=== PATIENT | female | born 2000 | race Caucasian/White ===

== ENCOUNTER 2021-05-22 10:08 | Emergency (ER) | payer BC, SELFPAY ==
[2021-05-22 11:05] VITALS: BP 127/77; PULSE 83; RESP 18; TEMP 36.7; O2SAT 100; BMI 23.1
--- NOTE | 2021-05-22 11:25 | HMH.EDUTC ---
[facility] [place] Clinical Impression: Exposure to COVID-19 virus Disposition: Home, Self-Care Condition on Discharge: Good Instructions: DI for COVID-19 (Suspected or Confirmed ), Preventing the Spread of Coronavirus Discharge Instructions Additional Instructions: Drink plenty of fluids. Take tylenol for pain or fever. Return if you begin to have difficulty breathing. Follow up with your regular doctor. GO TO THE ER FOR ANY WORSENING SYMPTOMS Quarantine until you know the results of your covid-19 test. If it is positive, the health department should call you and give you further instructions about your length of Quarantine and other things. Notify your school or workplace of your results and follow their instructions regarding return to work/school. Referrals: Provider,Referral, [Primary Care Provider] - Time of Disposition: 11:26 Medical Decision Making - Medical Records Medical records reviewed: No: I reviewed the patient's medical records. - Michael Inquiry Pt receiving controlled substance: No Vital Signs: 05/22/21 11:05 05/22/21 11:37 Temperature 98.0 F 98.0 F Temperature Source Oral Pulse Rate 83 Pulse Rate [Right Brachial] 83 Respiratory Rate 18 18 Blood Pressure 127/77 Blood Pressure [Right Arm] 127/77 Blood Pressure Mean [Right Arm] 93 Blood Pressure Source [Right Arm] Automatic Cuff Blood Pressure Position [Right Arm] Sitting 02 Sat by Pulse Oximetry 100 Oxygen Delivery Method Room Air Orders (Tests/Meds): ORDERS Category Date Time Status Covid-19 Nasal PCR ([facility]) Routine Lab 05/22/21 11:15 Received Covid-19 Nasal PCR ([facility]) Routine Lab 05/22/21 11:30 Ordered [facility] [place] - General Stated complaint: exposure Time Seen by Provider: 05/22/21 11:15 - History of Present Illness Provider Complaint: She has been exposed to covid-19 around 5 days ago. She denies any symptoms so far. She did have covid-19 back in last July. She has not been vaccinated. - Related Data Allergies Allergy/AdvReac Type Severity Reaction Status Date / Time No Known Allergies Allergy Verified 05/22/21 11:30 [facility] History - Hepatitis A Screen Attestation statement:: This patient has been screened for Hepatitis A risk factors. I have reviewed the patient's past medical history: Yes ROS Obtained: Yes All systems reviewed & no additional complaints - Constitutional Constitutional: Reports system reviewed and no additional complaints, except as docu - Eyes Eyes: Reports system reviewed and no additional complaints, except as docu - ENT Ears, Nose, Mouth, and Throat: Reports system reviewed and no additional complaints, except as docu - Cardiovascular Cardiovascular: Reports system reviewed and no additional complaints, except as docu - Respiratory Respiratory: Reports system reviewed and no additional complaints, except as docu - Gastrointestinal Gastrointestingal: Reports: system reviewed and no additional complaints, except as docu Physical Exam - General General appearance: alert, in no apparent distress - Head Head exam: atraumatic, normocephalic, normal inspection - Eye Eye exam: Present: normal appearance, PERRL, EOMI - ENT ENT exam: Present: normal exam, normal oropharynx, mucous membranes moist, TM's normal bilaterally, normal external ear exam - Neck Neck exam: Present: normal inspection, full ROM, trachea midline. Absent: meningismus, lymphadenopathy - Chest Chest inspection: Present: normal inspection, symmetric chest wall rise. Absent: tenderness - Respiratory Respiratory exam: Present: normal lung sounds bilaterally. Absent: respiratory distress - Cardiovascular Cardiovascular exam: Present: regular rate, normal rhythm. Absent: JVD - Abdominal Exam Abdominal exam: Present: soft, normal bowel sounds. Absent: distention, tenderness, guarding - Extremities Exam Extremities exam: Present: normal inspection, full R
[2021-05-22 11:37] VITALS: BP 127/77; PULSE 83; RESP 18; TEMP 36.7; O2SAT 100
== END 2021-05-22 11:40 | disposition home or self-care (01) ==
PROVIDERS: Emergency Provider Nurse Practitioner Family
DX: Z20.822 Contact with and (suspected) exposure to COVID-19 (principal)
CPT/HCPCS: 99202; C9803; G0463; U0003; U0005

== ENCOUNTER 2021-06-29 01:48 | Outpatient (CLI) | payer BC, SELFPAY ==
[2021-06-29 01:59] VITALS: BMI 24.0
[2021-06-29 02:40] LABS: Microscopic, Urine URINE MICROSCOPIC (MICROSCOPIC)
[2021-06-29 02:43] LABS: Appearance,Urine CLEAR (Clear); Bilirubin,Urine Negative (Negative); Blood, Urine Negative (Negative); Color,Urine YELLOW (Yellow); Glucose,Urine (UA) Negative (Negative); Ketones,Urine Negative (Negative); Leukocyte Esterase,Urine TRACE (Negative); Nitrate,Urine Negative (Negative); Protein,Urine Negative (Negative); Urobilinogen,Urine 0.2 EU/dl (0.2)
[2021-06-29 02:54] LABS: Amphetamine/Metha Screen,Urine Negative ng/ml (<1000)
[2021-06-29 02:55] LABS: Barbiturates Screen,Urine Negative ng/ml (<200)
[2021-06-29 02:56] LABS: Benzodiazepines Screen,Urine Negative ng/ml (<200); Cannabinoid Screen,Urine Negative ng/ml (<50)
[2021-06-29 02:57] LABS: Cocaine Screen,Urine Negative ng/ml (<300)
[2021-06-29 02:58] LABS: Fetal Fibronectin (Rapid) Negative (Negative); Fetal Membrane Rupture (Rapid) Negative (Negative)
[2021-06-29 02:58] LABS: Methadone Screen,Urine Negative ng/ml (<300); Opiate Screen,Urine Negative ng/ml (<300)
[2021-06-29 02:59] LABS: Phencyclidine Screen,Urine Negative ng/ml (<25)
[2021-06-29 03:15] LABS: Bacteria,Urine 1+ /lpf
[2021-06-29 03:16] VITALS: BP 126/80; PULSE 78; RESP 18; TEMP 37; O2SAT 100; BMI 24.0
== END 2021-06-29 04:00 | disposition home or self-care (01) ==
LOC: OBOUT 01:52 → OB 01:52
PROVIDERS: Visit Provider Obstetrics & Gynecology
DX: O26.893 Other specified pregnancy related conditions, third trimester (principal); Z3A.30 30 weeks gestation of pregnancy; R10.9 Unspecified abdominal pain
CPT/HCPCS: 59025; 80305; 81001; 82731; 84112; 96365; 96372; G0463

== ENCOUNTER 2022-01-27 11:26 | Emergency (ER) | payer BC, SELFPAY ==
[2022-01-27 11:55] VITALS: BP 129/72; PULSE 75; RESP 17; TEMP 36.7; O2SAT 98; BMI 20.7
[2022-01-27 12:05] LABS: Strep Scrn Group A (Rapid) Negative (Negative)
--- NOTE | 2022-01-27 12:38 | HMH.EDUTC ---
[facility] [place] Clinical Impression: Bronchitis, Viral syndrome Sinusitis Qualifiers: Sinusitis location: unspecified location Chronicity: acute Recurrence: non-recurrent Qualified Code(s): J01.90 - Acute sinusitis, unspecified Disposition: Home, Self-Care Condition on Discharge: Good Instructions: DI for Sinusitis Additional Instructions: Drink plenty of fluids. Take tylenol or ibuprofen for pain or fever. Take the medications as directed. Follow up with your regular doctor. GO TO THE ER FOR ANY WORSENING SYMPTOMS Prescriptions: Brompheniramine/Pseudoephed/Dm [Bromfed Dm Cough Syrup] 5 ml PO Q6HP PRN #240 ml PRN Reason: Cough Transmission Status: Received by [facility] #[id number] methylPREDNISolone [Medrol] 4 mg PO DIRECTED 6 Days #21 packet Transmission Status: Received by [facility] # Azithromycin [Z-Marvin 250mg Tab*] 250 mg PO UD DOSE PK #6 tab Transmission Status: Received by [facility] #[id number] Referrals: Santhosh Kelly MD [Primary Care Provider] - Forms: Work/School Release Time of Disposition: 12:53 Medical Decision Making - Medical Records Medical records reviewed: No: I reviewed the patient's medical records. - Michael Inquiry Pt receiving controlled substance: No Vital Signs: 01/27/22 11:55 01/27/22 12:56 Temperature 98.1 F 98.1 F Temperature Source Oral Pulse Rate 75 Pulse Rate [Left Radial] 75 Respiratory Rate 17 17 Blood Pressure 129/72 Blood Pressure [Right Arm] 129/72 Blood Pressure Mean [Right Arm] 91 02 Sat by Pulse Oximetry 98 - Lab Data Lab results reviewed: Yes: I reviewed the patient's lab results. Lab Results 01/27/22 12:02: Group A Strep Rapid Negative 01/27/22 13:15: SARS-CoV-2 (PCR) Not detected, Influenza A Untype (PCR) Not detected, Influenza Type B (PCR) Not detected Orders (Tests/Meds): ORDERS Category Date Time Status Strep Screen Confirmation Stat Micro 01/27/22 12:02 Received [facility] [place] HPI - General Stated complaint: no voice,sinus Time Seen by Provider: 01/27/22 12:38 Source of Information: Patient Description of Symptoms (Recalled from Triage Doc. by RN): patient comes in today for sinus congestion, no voice, and sore throat. patient states she began feeling sick 1 week ago HEENT Symptoms (Recalled from RN notes): Yes Resp Symptoms (Recalled from RN notes): Yes Skin Symptoms (Recalled from RN notes): No MS Symptoms (Recalled from RN notes): No Functional Status (Recalled from RN notes): wnl - History of Present Illness Provider Complaint: She states that for the past 1 week she has been having sinus congestion, green and yellow nasal drainage, chest congestion with a productive cough with greenish and yellow sputum. She has vomited x2 since yesterday, but she states it was caused by all the sinus drainage she has been having. She has had a low grade fever and felt very achy over the past 1 day also. - Related Data Home Medications Medication Instructions Recorded Confirmed Pnv No.95/Ferrous Fum/Folic AC 1 each PO DAILY 06/29/21 06/29/21 [ Caplet] Previous Rx's Medication Instructions Recorded Azithromycin [Z-Marvin 250mg Tab*] 250 mg PO UD DOSE PK #6 tab 01/27/22 Brompheniramine/Pseudoephed/Dm 5 ml PO Q6HP PRN #240 ml 01/27/22 [Bromfed Dm Cough Syrup] methylPREDNISolone [Medrol] 4 mg PO DIRECTED 6 Days #21 01/27/22 packet Allergies Allergy/AdvReac Type Severity Reaction Status Date / Time No Known Allergies Allergy Verified 01/27/22 11:59 - Worker's Comp Is this a Worker's Comp case?: No [facility] History - Hepatitis A Screen Attestation statement:: This patient has been screened for Hepatitis A risk factors. I have reviewed the patient's past medical history: Yes Other Surgeries: No: - Social History Occupational Status: other ROS Obtained: Yes All systems reviewed & no additional complaints - Constitutional Constitution
[2022-01-27 12:56] VITALS: BP 129/72; PULSE 75; RESP 17; TEMP 36.7
[2022-01-27 13:24] LABS: Coronavirus 19, PCR Not Detected (NotDetected); Influenza A, PCR Not Detected (NotDetected); Influenza B, PCR Not Detected (NotDetected)
== END 2022-01-27 13:07 | disposition home or self-care (01) ==
PROVIDERS: Emergency Provider Nurse Practitioner Family; PCP Internal Medicine Adolescent Medicine
DX: J20.8 Acute bronchitis due to other specified organisms (principal); J01.90 Acute sinusitis, unspecified
CPT/HCPCS: 87430; 99212; C9803; G0463; U0003; U0005

== ENCOUNTER 2022-02-17 11:20 | Emergency (ER) | payer BC, SELFPAY ==
[2022-02-17 11:30] VITALS: BP 131/69; PULSE 101; RESP 20; TEMP 36.9; O2SAT 100; BMI 20.7
--- NOTE | 2022-02-17 11:40 | HMH.EDUTC ---
[facility] [place] Disposition Clinical Impression: Ear pain, left Sinusitis Qualifiers: Sinusitis location: unspecified location Chronicity: unspecified Qualified Code(s): J32.9 - Chronic sinusitis, unspecified Disposition: Home, Self-Care Condition on Discharge: Good Instructions: Sinusitis, DI for Sinusitis, DI for Ear Pain-Adult Additional Instructions: * No sign of bacterial infection. Likely viral. Virus can take 7-14 days to run their course *Nasal saline and bulb syringe or nose issa to remove nasal drainage and help with nasal congestion. Hard to eat, drink, or sleep with nasal congestion so important to keep nose cleaned out. *Monitor Temp, Over the counter Motrin or Tylenol as directed/as needed Tylenol every 4 hours and Motrin every 6 hours (as long as your family doctor has told you that you can take it) for fever or pain. and straight to ER if unable to lower temp less than 101.0 after medication given *Warm salt water gargles may help to soothe the throat *Throat Lozenges *Warm fluids like tea with honey may help to soothe the throat *Sleep elevated *Humidifier/Vaporizer Take medication as prescribed Follow up IMMEDIATELY for new or worsening symptoms or no Noticeable improvement over the next 48-72 hours. 911 for difficulty breathing or swallowing Prescriptions: Amoxicillin/Potassium Clav [Amox-Clav 875-125 mg Tablet] 1 tab PO BID #14 tab Transmission Status: Pending to [facility] #[id number] Fluticasone Propionate [Flonase 50mcg nasal spray 16gm] 1 spr NS DAILY #1 each Transmission Status: Pending to [facility] #[id number] Referrals: Provider,Referral, MD [Primary Care Provider] - As needed Medical Decision Making - Michael Inquiry Pt receiving controlled substance: No Michael was queried for this patient: No Vital Signs: 02/17/22 11:30 Temperature 98.5 F Temperature Source Oral Pulse Rate [Right Brachial] 101 H Respiratory Rate 20 Blood Pressure [Right Arm] 131/69 Blood Pressure Mean [Right Arm] 89 Blood Pressure Source [Right Arm] Automatic Cuff Blood Pressure Position [Right Arm] Sitting 02 Sat by Pulse Oximetry 100 Oxygen Delivery Method Room Air [facility] [place] HPI - General Stated complaint: lt ear pain Time Seen by Provider: 02/17/22 11:40 Mode of Arrival: Ambulatory Source of Information: Patient Limitations: No Limitations Description of Symptoms (Recalled from Triage Doc. by RN): PATIENT C/O SINUS CONGESTION X 4 DAYS AND LEFT EAR PAIN SINCE LAST NIGHT HEENT Symptoms (Recalled from RN notes): Yes Resp Symptoms (Recalled from RN notes): No Skin Symptoms (Recalled from RN notes): No MS Symptoms (Recalled from RN notes): No Functional Status (Recalled from RN notes): WNL - History of Present Illness Provider Complaint: Patient states that she has been having sinus pain and pressure along with pain and pressure in in her left ear State that she felt a pop in her ear last night and was worried that she may have torn her eardrum States that today she was still not feeling well so she came in to get checked - Related Data Home Medications Medication Instructions Recorded Confirmed Pnv No.95/Ferrous Fum/Folic AC 1 each PO DAILY 06/29/21 02/17/22 [ Caplet] Previous Rx's Medication Instructions Recorded Amoxicillin/Potassium Clav 1 tab PO BID #14 tab 02/17/22 [Amox-Clav 875-125 mg Tablet] Fluticasone Propionate [Flonase 1 spr NS DAILY #1 each 02/17/22 50mcg nasal spray 16gm] Allergies Allergy/AdvReac Type Severity Reaction Status Date / Time No Known Allergies Allergy Verified 01/27/22 11:59 - Worker's Comp Is this a Worker's Comp case?: No [facility] History - Hepatitis A Screen Attestation statement:: This patient has been screened for Hepatitis A risk factors. I have reviewed the patient's past medical history: Yes Laterality Cases: Bilateral: Myringotomy (Ear Tubes), Tonsillectomy Other Surgeries: No: - Social History A
[2022-02-17 11:47] VITALS: BP 131/69; PULSE 101; RESP 20; TEMP 36.9; O2SAT 100
[2022-02-17 11:56] LABS: Adenovirus,PCR Not Detected (NotDetected); Bordetella Pertussis Not Detected (NotDetected); Chlamydophila Pneumoniae, PCR Not Detected (NotDetected); Coronavirus 19, PCR Not Detected (NotDetected); Coronavirus 229E Not Detected (NotDetected); Coronavirus NL63 Not Detected (NotDetected); Coronavirus OC43 Not Detected (NotDetected); Coronovirus HKU1,PCR Not Detected (NotDetected); Human Metapneumovirus Not Detected (NotDetected); Influenza A, PCR Not Detected (NotDetected); Influenza AH1, 2009 Not Detected (NotDetected); Influenza AH1, PCR Not Detected (NotDetected); Influenza AH3,PCR Not Detected (NotDetected); Influenza B, PCR Not Detected (NotDetected); Mycoplasma Pneumoniae, PCR Not Detected (NotDetected); Parainfluenza 1, PCR Not Detected (NotDetected); Parainfluenza 2, PCR Not Detected (NotDetected); Parainfluenza 3, PCR Not Detected (NotDetected); Parainfluenza 4, PCR Not Detected (NotDetected); Rhinovirus/Enterovirus Not Detected (NotDetected)
[2022-02-17 15:23] LABS: Respiratory Syncytial Virus Detected (NotDetected)
== END 2022-02-17 11:54 | disposition home or self-care (01) ==
PROVIDERS: Emergency Provider Nurse Practitioner
DX: B97.4 Respiratory syncytial virus as the cause of diseases classified elsewhere (principal); H92.02 Otalgia, left ear; J32.9 Chronic sinusitis, unspecified
CPT/HCPCS: 87581; 87632; 87798; 99212; C9803; G0463; U0003; U0005

== ENCOUNTER 2022-06-19 11:03 | Emergency (ER) | payer BC, SELFPAY ==
[2022-06-19 11:03] VITALS: BP 118/70; PULSE 83; RESP 18; TEMP 36.8; O2SAT 98; BMI 21.1
--- NOTE | 2022-06-19 12:16 | EXP.UTC ---
Discharge Plan Prescriptions Prescriptions: No Action PNV cmb#95-ferrous fumarate-FA 1 EACH tablet 1 each PO DAILY fluticasone propionate 120 SPRAY bottle 1 spr NS DAILY Qty: 1 0RF Rx Instructions: one spray in each nostril daily amoxicillin-pot clavulanate 1 EACH tablet 1 tab PO BID Qty: 14 0RF Referrals Follow up/Referrals: Provider,Referral, MD [Primary Care Provider] - See instructions Activity Restrictions/Add. Instructions Additional Instructions/Restrictions: *Monitor Temp, Over the counter Motrin or Tylenol as directed/as needed Tylenol every 4 hours and Motrin every 6 hours (as long as your family doctor has told you that you can take it) for fever or pain. and straight to ER if unable to lower temp less than 101.0 after medication given *Warm salt water gargles may help to soothe the throat *Throat Lozenges? *Warm fluids like tea with honey may help to soothe the throat? *Sleep elevated *Humidifier/Vaporizer Your throat swab was sent for culture. Those results are typically sent to your primary care. Be sure to follow up in 2-3 days with your family doctor/primary care physician if no improvement so they can review those result and treat if necessary. If you don?t have a primary care doctor, I recommend you get one but in the mean time, you will have to return to a walk in clinic Follow up IMMEDIATELY for new or worsening symptoms or no Noticeable improvement over the next 48-72 hours. 911 for difficulty breathing or swallowing You were tested for today for COVID19 your test result should be back in the next 24-48 hours, you may check your results on the [facility] Health Portal Clinical Impressions Clinical Impression: Viral upper respiratory tract infection with cough Stand Alone Forms Stand Alone Forms: Work/School Release Instructions Patient Instructions: Cough Discharge ED Provider: Yuridia Oro [facility] [place] HPI General Stated complaint: Congestion, BA, Sore throat Mode of Arrival: Ambulatory Source of Information: Patient Limitations: No Limitations Time Seen by Provider: 06/19/22 12:16 Description of Symptoms (Recalled from Triage Doc. by RN): SINUS CONGESTION, SORE THROAT, AND desouza HEENT Symptoms (Recalled from RN notes): Yes Resp Symptoms (Recalled from RN notes): No Skin Symptoms (Recalled from RN notes): No MS Symptoms (Recalled from RN notes): No Functional Status (Recalled from RN notes): N/A History of Present Illness Provider Complaint: Patient states that she has been having body aches, chills, head congestion sore throat and feeling of fullness in her ears States that she is 13wks OB States that she has been around several people that have tested positive for the flu and strep throat so she came in to get checked out Related Data Home Medications Medication Instructions Recorded Confirmed vit no.95-ferrous 1 each PO DAILY Supplement 06/29/21 02/17/22 fumarate 28 mg-folic acid 800 mcg tablet Previous Rx's Medication Instructions Recorded amoxicillin 875 mg-potassium 1 tab PO BID #14 tabs 02/17/22 clavulanate 125 mg tablet fluticasone propionate 50 1 spr intranasal DAILY #1 ea 02/17/22 mcg/actuation nasal spray,suspension Allergies Allergy/AdvReac Type Severity Reaction Status Date / Time No Known Allergies Allergy Verified 01/27/22 11:59 Worker's Comp Is this a Worker's Comp case?: No PFSH PFSH Social History Smoking Status: Never smoker alcohol intake: never current occupational status: other Travel in the last 8 weeks: None ROS Obtained: Yes All systems reviewed & no additional complaints except as documented and Yes Systems reviewed as appropriate & no additional complaints except as documented Constitutional Constitutional: Reports system reviewed and no additional complaints, except as documented, Reports as per HPI, Reports body ache, Reports chills and Reports headache(s) ENT Ear
[2022-06-19 12:19] LABS: UTC Influenza A Antigen Negative (Negative); UTC Strep Screen (Rapid) Negative (Negative)
[2022-06-19 12:20] LABS: UTC Influenza B Antigen Negative (Negative)
[2022-06-19 12:41] LABS: Adenovirus,PCR Not Detected (NotDetected); Bordetella Pertussis Not Detected (NotDetected); Chlamydophila Pneumoniae, PCR Not Detected (NotDetected); Coronavirus 19, PCR Not Detected (NotDetected); Coronavirus 229E Not Detected (NotDetected); Coronavirus NL63 Not Detected (NotDetected); Coronavirus OC43 Not Detected (NotDetected); Coronovirus HKU1,PCR Not Detected (NotDetected); Human Metapneumovirus Not Detected (NotDetected); Influenza A, PCR Not Detected (NotDetected); Influenza AH1, 2009 Not Detected (NotDetected); Influenza AH1, PCR Not Detected (NotDetected); Influenza AH3,PCR Not Detected (NotDetected); Influenza B, PCR Not Detected (NotDetected); Mycoplasma Pneumoniae, PCR Not Detected (NotDetected); Parainfluenza 1, PCR Not Detected (NotDetected); Parainfluenza 2, PCR Not Detected (NotDetected); Parainfluenza 3, PCR Not Detected (NotDetected); Parainfluenza 4, PCR Not Detected (NotDetected); Respiratory Syncytial Virus Not Detected (NotDetected)
[2022-06-19 12:52] VITALS: BP 118/70; PULSE 83; RESP 18; TEMP 36.8; O2SAT 98
[2022-06-19 16:26] LABS: Rhinovirus/Enterovirus Detected (NotDetected)
== END 2022-06-19 12:53 | disposition home or self-care (01) ==
PROVIDERS: Emergency Provider Nurse Practitioner
DX: J06.9 Acute upper respiratory infection, unspecified (principal)
CPT/HCPCS: 87581; 87632; 87798; 87804; 87880; 99212; C9803; G0463; U0003; U0005

== ENCOUNTER 2023-12-03 09:30 | Emergency (ER) | payer BC, SELFPAY ==
[2023-12-03 09:45] VITALS: BP 139/86; PULSE 90; RESP 19; TEMP 36.6; O2SAT 100; BMI 21.4
--- NOTE | 2023-12-03 10:17 | ED_ITS ---
Discharge Plan Disposition Patient Disposition: Home, Self-Care Condition: Good Prescriptions Prescriptions: New amoxicillin-pot clavulanate 875-125 mg Tablet 1 tab PO Q12H Qty: 20 0RF fluticasone propionate [Flonase Allergy Relief] 50 mcg/actuation spray ,suspension 2 spray intranasal DAILY Qty: 16 0RF Rx Instructions: administer into each nostril daily No Action sodium fluoride-pot nitrate 1.1-5 % paste See Rx Instructions .ROUTE .COMPLEX Patient Comments: BRUSH TEETH ONCE DAILY Rx Instructions: BRUSH TEETH ONCE DAILY Referrals Follow up/Referrals: Provider,Referral, MD [Primary Care Provider] - See instructions Activity Restrictions/Add. Instructions Additional Instructions/Restrictions: *Monitor Temp, Over the counter Motrin or Tylenol as directed/as needed Tylenol every 4 hours and Motrin every 6 hours (as long as your family doctor has told you that you can take it) for fever or pain. and straight to ER if unable to lower temp less than 101.0 after medication given *Warm salt water gargles may help to soothe the throat *Throat Lozenges? *Warm fluids like tea with honey may help to soothe the throat? *Sleep elevated *Humidifier/Vaporizer *Flonase 2 sprays in each nostril daily but be aware that it may take 2-3 days before you notice improvement Follow up IMMEDIATELY for new or worsening symptoms or no Noticeable improvement over the next 48-72 hours. 911 for difficulty breathing or swallowing Clinical Impressions Clinical Impression: Sinusitis Qualifiers: Sinusitis location: unspecified location Chronicity: unspecified Qualified Code(s): J32.9 - Chronic sinusitis, unspecified Otitis media Qualifiers: Otitis media type: unspecified Laterality: bilateral Qualified Code(s): H66.93 - Otitis media, unspecified, bilateral Instructions Patient Instructions: Sinusitis, Middle Ear Infection, DI for Sinusitis Discharge ED Provider: Yuridia Oro [facility] General Stated complaint: pain in R ear, sinus congestion, sinus pressure Mode of Arrival: Ambulatory Source of Information: Patient Limitations: No Limitations Time Seen by Provider: 12/03/23 10:17 Description of Symptoms (Recalled from Triage Doc. by RN): Pt's symptoms are sinus pressure and left ear pain. HEENT Symptoms (Recalled from RN notes): Yes Resp Symptoms (Recalled from RN notes): No Skin Symptoms (Recalled from RN notes): No MS Symptoms (Recalled from RN notes): No Functional Status (Recalled from RN notes): n/a History of Present Illness Provider Complaint: Patient states that she has been having sinus pain and pressure for over a week and last night started with pain in her left ear and worried it may have ruptured so today she came in States that she is scheduled for surgery soon and they wanted her to get checked and treated Related Data Home Medications Medication Instructions Recorded Confirmed sodium fluoride 1.1 %-potassium See Rx Instructions .Route .COMPLEX 12/03/23 12/03/23 nitrate 5 % dental paste Previous Rx's Medication Instructions Recorded amoxicillin 875 mg-potassium 1 tab PO Q12H #20 tabs 12/03/23 clavulanate 125 mg tablet fluticasone propionate 50 2 spray intranasal DAILY #16 grams 12/03/23 mcg/actuation nasal spray,suspension (Flonase Allergy Relief) Allergies Allergy/AdvReac Type Severity Reaction Status Date / Time ondansetron [From Zofran] Allergy Mild Rash Verified 12/03/23 09:57 Worker's Comp Is this a Worker's Comp case?: No [facility] Disclaimer: The information contained in this section may have been updated after the magdi ent was seen, as this information can be updated by other users. Social History Smoking Status: Never smoker alcohol intake: never current occupational status: other Travel in the last 8 weeks: None ROS Obtained: Yes All systems reviewed & no additional complaints except as documented and Yes Systems reviewed as appropriate & no additional complaints except as documented Constitutional Constitutional: Reports system reviewed and no additional complaints, except as documented and Reports as per HPI ENT Ears, Nose, Mouth, and Throat: Reports system reviewed and no additional complaints, except as documented, Reports as per HPI, Reports otalgia, Reports sinus pain and Reports sinus pressure Cardiovascular Cardiovascular: Reports system reviewed and no additional complaints, except as documented and Reports as per HPI Respiratory Respiratory: Reports system reviewed and no additional complaints, except as documented and Reports as per HPI Gastrointestinal Gastrointestingal: Reports system reviewed and no additional complaints, except as documented and as per HPI Musculoskeletal Musculoskeletal: Reports system reviewed and no additional complaints, except as documented and Reports as per HPI Physical Exam General General appearance: alert and in no apparent distress ENT ENT exam: Present mucous membranes moist Expanded ENT Exam TM/Canal exam: Left TM: loss of landmarks and Bilateral TM: erythema (worse in left) Nose exam: Present sinus tenderness Respiratory Respiratory exam: Present normal lung sounds bilaterally; Absent respiratory distress or wheezes Cardiovascular Cardiovascular exam: Present regular rate, normal rhythm and normal heart sounds Neurological Exam Neurological exam: Present alert, oriented X3 and normal gait Medical Decision Making Michael Inquiry Pt receiving controlled substance: No Michael was queried for this patient: No Vital Signs: 12/03/23 09:45 Temperature 97.9 F Temperature Source Oral Pulse Rate [Right Radial] 90 Respiratory Rate 19 Blood Pressure [Right Arm] 139/86 Blood Pressure Mean [Right Arm] 103 Blood Pressure Source [Right Arm] Automatic Cuff Blood Pressure Position [Right Arm] Sitting 02 Sat by Pulse Oximetry 100 Oxygen Delivery Method Room Air
[2023-12-03] MEDS: METHYLPREDNISOLONE SOD SUCC 125MG VIAL 125 MG IM (10:27)
[2023-12-03 10:53] VITALS: BP 139/86; PULSE 90; RESP 19; TEMP 36.6; O2SAT 100
== END 2023-12-03 10:53 | disposition home or self-care (01) ==
PROVIDERS: Emergency Provider Nurse Practitioner
DX: H66.93 Otitis media, unspecified, bilateral (principal); J01.90 Acute sinusitis, unspecified; R09.81 Nasal congestion
CPT/HCPCS: 96372; 99212; 99214; G0463

== ENCOUNTER 2024-04-23 16:15 | Emergency (ER) | payer BC, SELFPAY ==
--- NOTE | 2024-04-23 16:22 | EXP.UTC ---
Discharge Plan Disposition Patient Disposition: Home, Self-Care Condition: Good Prescriptions Prescriptions: New azithromycin [Zithromax] 250 mg tablet 250 mg PO UD DOSE PK Qty: 6 0RF Rx Instructions: Take two (2) tablets today, then one (1) tablet days #2 thru #5 methylprednisolone 4 mg Tablets,Dose Pack 4 mg PO DIRECTED 6 Days Qty: 21 0RF Rx Instructions: Take 1 pack as directed for 6 days [id number]-[id number] [Bromfed DM] 2-30-10 mg/5 mL Syrup 5 ml PO Q6H PRN (Reason: Cough) Qty: 240 0RF Referrals Follow up/Referrals: Provider,Referral, MD [Primary Care Provider] - See instructions Activity Restrictions/Add. Instructions Additional Instructions/Restrictions: Drink plenty of fluids. Take tylenol or ibuprofen for pain or fever. Take the medications as directed. Follow up with your regular doctor. GO TO THE ER FOR ANY WORSENING SYMPTOMS Clinical Impressions Clinical Impression: Sinusitis Qualifiers: Sinusitis location: unspecified location Chronicity: unspecified Qualified Code(s): J32.9 - Chronic sinusitis, unspecified Instructions Patient Instructions: Sinusitis, DI for Sinusitis Print Language Print Language: Rwandan Discharge ED Provider: Pio Bravo [facility] General Stated complaint: congestion runny nose ear pain cough Time Seen by Provider: 04/23/24 16:22 Related Data Previous Rx's ?Medication ?Instructions ?Recorded azithromycin 250 mg tablet 250 mg PO UD DOSE PK #6 tabs 04/23/24 (Zithromax) ravyhtbdhkhuixt-eapsiuaibxcndvv-[id number] 5 ml PO Q6H PRN Cough #240 mL 04/23/24 2 mg-30 mg-10 mg/5 mL oral syrup (Bromfed DM) methylprednisolone 4 mg tablets in 4 mg PO DIRECTED 6 days #21 tabs 04/23/24 a dose pack Allergies Allergy/AdvReac Type Severity Reaction Status Date / Time ondansetron [From Zofran] Allergy Mild Rash Verified 12/03/23 09:57 [facility] Disclaimer: The information contained in this section may have been updated after the patient was seen, as this information can be updated by other users. Medical History (Updated 04/23/24 @ 17:14 by Pio Lawrence, STAFFING ANALYST) Migraine Surgical History (Updated 04/23/24 @ 16:31 by Anupama Almonte RN) History of tympanostomy tube placement History of tonsillectomy History of section Social History Smoking Status: Never smoker alcohol intake: never current occupational status: other Travel in the last 8 weeks: None ROS Obtained: Yes All systems reviewed & no additional complaints except as documented Constitutional Constitutional: Reports poor appetite Eyes Eyes: Reports system reviewed and no additional complaints, except as documented ENT Ears, Nose, Mouth, and Throat: Reports as per HPI Cardiovascular Cardiovascular: Reports system reviewed and no additional complaints, except as documented and Denies chest pain Respiratory Respiratory: Denies shortness of breath, Denies chest congestion, Reports cough, Denies stridor and Denies wheezing Gastrointestinal Gastrointestingal: Reports system reviewed and no additional complaints, except as documented; Denies abdominal pain, diarrhea or vomiting Musculoskeletal Musculoskeletal: Reports system reviewed and no additional complaints, except as documented and Denies arthralgias Integumentary/Breasts Skin/Breast: Reports system reviewed and no additional complaints, except as documented and Denies rash Neurologic Neurologic: Denies paresthesias Allergic/Immunologic Allergic/Immunologic: Denies wheezing Physical Exam General General appearance: alert and in no apparent distress Eye Eye exam: Present normal appearance, PERRL and EOMI ENT ENT exam: Present mucous membranes moist and normal external ear exam Expanded ENT Exam External ear exam: Present normal external inspection TM/Canal exam: Bilateral TM: erythema and bulging Nose exam: Absent sinus tenderness
[2024-04-23 16:25] VITALS: BP 115/61; PULSE 80; RESP 21; TEMP 36.9; O2SAT 98; BMI 22.6
[2024-04-23 17:16] VITALS: BP 115/61; PULSE 80; RESP 21; TEMP 36.9; O2SAT 98
== END 2024-04-23 17:17 | disposition home or self-care (01) ==
PROVIDERS: Emergency Provider Nurse Practitioner Family
DX: J01.90 Acute sinusitis, unspecified (principal); H92.03 Otalgia, bilateral; R05.9 Cough, unspecified
CPT/HCPCS: 99212; 99214; G0463

== ENCOUNTER 2024-08-06 11:55 | Emergency (ER) | payer BC, SELFPAY ==
[2024-08-06 13:30] VITALS: BP 127/75; PULSE 96; RESP 20; TEMP 36.8; O2SAT 100; BMI 21.4
--- NOTE | 2024-08-06 13:54 | EXP.UTC ---
Discharge Plan Disposition Patient Disposition: Home, Self-Care Condition: Good Prescriptions Prescriptions: New azithromycin [Zithromax Z-Marvin] 250 mg tablet See Rx Instructions .ROUTE .COMPLEX 5 Days Qty: 6 0RF Rx Instructions: For 250 mg dose pack: take 500 mg today (day 1), then 250 mg for 4 days (days 2-5) methylprednisolone [Medrol (Marvin)] 4 mg tablets,dose pack See Rx Instructions .Route .COMPLEX 6 Days Qty: 21 0RF Rx Instructions: taper pack; Referrals Follow up/Referrals: Provider,Referral, MD [Primary Care Provider] - See instructions Activity Restrictions/Add. Instructions Additional Instructions/Restrictions: *Monitor Temp, Over the counter Motrin or Tylenol as directed/as needed Tylenol every 4 hours and Motrin every 6 hours (as long as your family doctor has told you that you can take it) for fever or pain. and straight to ER if unable to lower temp less than 101.0 after medication given *Warm salt water gargles may help to soothe the throat *Throat Lozenges? *Warm fluids like tea with honey may help to soothe the throat? *Sleep elevated *Humidifier/Vaporizer * Follow up IMMEDIATELY for new or worsening symptoms or no Noticeable improvement over the next 48-72 hours. 911 for difficulty breathing or swallowing Clinical Impressions Clinical Impression: Sinusitis Qualifiers: Sinusitis location: unspecified location Chronicity: unspecified Qualified Code(s): J32.9 - Chronic sinusitis, unspecified Instructions Patient Instructions: Sinusitis, DI for Sinusitis Print Language Print Language: Croatian Discharge ED Provider: Yuridia Oro [facility] HPI General Stated complaint: pain in both ears Mode of Arrival: Ambulatory Source of Information: Patient Limitations: No Limitations Time Seen by Provider: 08/06/24 13:54 Description of Symptoms (Recalled from Triage Doc. by RN): PATIENT C/O BILATERAL EAR PAIN AND SINUS PAIN X 3 DAYS HEENT Symptoms (Recalled from RN notes): Yes Resp Symptoms (Recalled from RN notes): No Skin Symptoms (Recalled from RN notes): No MS Symptoms (Recalled from RN notes): No Functional Status (Recalled from RN notes): WNL History of Present Illness Provider Complaint: Pt states that she has been having bilateral ear pain and pressure and pain and pressure in her sinuses States that she is not sure if she may have a sinus infection or ear infection so she came in to get checked Related Data Previous Rx's ?Medication ?Instructions ?Recorded azithromycin 250 mg tablet See Rx Instructions PO .COMPLEX 5 08/06/24 (Zithromax Z-Marvin) days #6 tabs methylprednisolone 4 mg tablets in See Rx Instructions .Route 08/06/24 a dose pack (Medrol (Marvin)) .COMPLEX 6 days #21 tabs Allergies Allergy/AdvReac Type Severity Reaction Status Date / Time ondansetron (From Zofran) Allergy Mild Rash Verified 12/03/23 09:57 Worker's Comp Is this a Worker's Comp case?: No [facility] Disclaimer: The information contained in this section may have been updated after the patient was seen, as this information can be updated by other users. Medical History (Updated 08/06/24 @ 14:01 by Yuridia Oro APRN) Migraine Surgical History (Updated 04/23/24 @ 16:31 by Anupama Almonte RN) History of tympanostomy tube placement History of tonsillectomy History of section Social History Smoking Status: Never smoker alcohol intake: never current occupational status: other Travel in the last 8 weeks: None ROS Obtained: Yes All systems reviewed & no additional complaints except as documented and Yes Systems reviewed as appropriate & no additional complaints except as documented Constitutional Constitutional: Reports system reviewed and no additional complaints, except as documented and Reports as per HPI ENT Ears, Nose, Mouth, and Throat: Reports system reviewed and no additional complaints, except as documented, Reports as per HPI, Reports otalgia, Reports sinus pain and Reports sinus pressure Cardiovascular Cardiovascular: Reports system reviewed and no additional complaints, except as documented and Reports as per HPI Respiratory Respiratory: Reports system reviewed and no additional complaints, except as documented and Reports as per HPI Gastrointestinal Gastrointestingal: Reports system reviewed and no additional complaints, except as documented and as per HPI Physical Exam General General appearance: alert and in no apparent distress ENT ENT exam: Present mucous membranes moist Expanded ENT Exam TM/Canal exam: Right TM: erythema (mild) and Bilateral TM: bulging Nose exam: Present sinus tenderness Throat exam: Present other (PND noted) Respiratory Respiratory exam: Present normal lung sounds bilaterally; Absent respiratory distress or wheezes Cardiovascular Cardiovascular exam: Present regular rate, normal rhythm and normal heart sounds Neurological Exam Neurological exam: Present alert, oriented X3 and normal gait Medical Decision Making Medical Records Screening: Per USPSTF and CDC recommendations, given the prevalence of disease in our region, it is our hospital?s policy to screen for HIV and viral Hepatitis for all patients aged 18 and over and those with ongoing risk factors. Michael Inquiry Pt receiving controlled substance: No Michael was queried for this patient: No Vital Signs: 08/06/24 13:30 Temperature 98.3 F Temperature Source Oral Pulse Rate [Left Brachial] 96 H Respiratory Rate 20 Blood Pressure [Left Arm] 127/75 Blood Pressure Mean [Left Arm] 92 Blood Pressure Source [Left Arm] Automatic Cuff Blood Pressure Position [Left Arm] Sitting 02 Sat by Pulse Oximetry 100 Oxygen Delivery Method Room Air Medical Decision Narrative: Patient states that she has taken Rocephin, solu medrol and azithromycin in the past without complications or reactions and denies chance of
[2024-08-06] MEDS: METHYLPREDNISOLONE SOD SUCC 125MG VIAL 125 MG IM (14:10)
[2024-08-06] MEDS: cefTRIAXone 1GM VIAL 1 GM IM (14:10)
[2024-08-06] MEDS: LIDOCAINE 1% 5ML PF VIAL IM (14:10)
[2024-08-06 14:25] VITALS: BP 127/75; PULSE 96; RESP 20; TEMP 36.8; O2SAT 100
== END 2024-08-06 14:27 | disposition home or self-care (01) ==
PROVIDERS: Emergency Provider Nurse Practitioner
DX: J32.9 Chronic sinusitis, unspecified (principal); H92.03 Otalgia, bilateral; J34.89 Other specified disorders of nose and nasal sinuses
CPT/HCPCS: 96372; 99212; G0381; J0696; J2919

== ENCOUNTER 2024-09-16 16:49 | Emergency (ER) | payer BC, SELFPAY ==
[2024-09-16 18:05] VITALS: BP 124/73; PULSE 71; RESP 18; TEMP 36.6; O2SAT 100; BMI 21.9
--- NOTE | 2024-09-16 18:12 | EXP.UTC ---
Discharge Plan Disposition Patient Disposition: Home, Self-Care Condition: Good Prescriptions Prescriptions: New triamcinolone acetonide 0.1 % paste 1 applic dental BID PRN (Reason: mouth irritation) Qty: 5 0RF Rx Instructions: use after food and/or drink and/or oral hygiene prednisone 10 mg tablet 10 mg PO BID 3 Days Qty: 6 0RF Referrals Follow up/Referrals: Provider,Referral, MD [Primary Care Provider] - See instructions Activity Restrictions/Add. Instructions Additional Instructions/Restrictions: Drink plenty of fluids. Take tylenol or ibuprofen for pain or fever. Take the medications as directed. Use the magic mouth wash as directed. Follow up with your regular doctor. GO TO THE ER FOR ANY WORSENING SYMPTOMS Clinical Impressions Clinical Impression: Acute herpangina Instructions Patient Instructions: Prednisone Print Language Print Language: [place] Discharge ED Provider: Pio Bravo [facility] General Stated complaint: blisters in mouth Mode of Arrival: Ambulatory Source of Information: Patient Time Seen by Provider: 09/16/24 18:12 Description of Symptoms (Recalled from Triage Doc. by RN): BLISTERS/RASH IN MOUTH HEENT Symptoms (Recalled from RN notes): Yes Resp Symptoms (Recalled from RN notes): No Skin Symptoms (Recalled from RN notes): No MS Symptoms (Recalled from RN notes): No Functional Status (Recalled from RN notes): WNL History of Present Illness Provider Complaint: She states that since this morning she has had multiple blisters and sore areas inside her lips and on the inside of her cheeks. Her young daughter also currently has blisters around her lips that began several days ago. This patient is also having malaise, mild body aches and fatigue since this morning. Related Data Previous Rx's ?Medication ?Instructions ?Recorded prednisone 10 mg tablet 10 mg PO BID 3 days #6 tabs 09/16/24 triamcinolone acetonide 0.1 % 1 applic dental BID PRN mouth 09/16/24 dental paste irritation #5 grams Allergies Allergy/AdvReac Type Severity Reaction Status Date / Time ondansetron (From Zofran) Allergy Mild Rash Verified 12/03/23 09:57 codeine Allergy Other Verified 09/16/24 18:08 Worker's Comp Is this a Worker's Comp case?: No [facility] Disclaimer: The information contained in this section may have been updated after the patient was seen, as this information can be updated by other users. Medical History (Updated 09/16/24 @ 18:43 by Pio Bravo APRN) Migraine Surgical History (Updated 04/23/24 @ 16:31 by Anupama Almonte RN) History of tympanostomy tube placement History of tonsillectomy History of section Social History Smoking Status: Never smoker alcohol intake: never current occupational status: other Travel in the last 8 weeks: None Have you lived/traveled outside [place] in past 30 days?: No Contact w/someone who lives/traveled outside [place] past 30 days?: No Exposure to someone with infectious disease in past 14 days?: No Do you have a fever (greater than 100.4 F or 38 C)?: No Have you tested positive for COVID-19: No Exposed to someone with COVID-19 in past 14 days?: No Do you have a sore throat?: No Do you have a cough?: No Do you have any weakness?: No Do you have any diarrhea?: No Are you experiencing any unusual bleeding?: No Do you have any muscle aches/pain?: No Do you have any abdominal pain?: No Are you experiencing loss of taste or smell?: No ROS Obtained: Yes All systems reviewed & no additional complaints except as documented Constitutional Constitutional: Denies chills and Denies fever(s) Eyes Eyes: Denies eye discharge ENT Ears, Nose, Mouth, and Throat: Reports as per HPI, Denies dizziness, Denies otalgia and Reports sore throat Cardiovascular Cardiovascular: Denies chest pain Respiratory Respiratory: Denies shortness of breath, Denies chest congestion, Denies cough, Denies stridor and Denies wheezing Gastrointestinal Gastrointestingal: Denies nausea or vomiting Musculoskeletal Musculoskeletal: Reports system reviewed and no additional complaints, except as documented and Denies arthralgias Integumentary/Breasts Skin/Breast: Denies rash Neurologic Neurologic: Denies dizziness and Denies paresthesias Allergic/Immunologic Allergic/Immunologic: Denies wheezing Physical Exam General General appearance: alert and in no apparent distress Head Head exam: atraumatic, normocephalic and normal inspection Eye Eye exam: Present normal appearance, PERRL and EOMI ENT ENT exam: Present mucous membranes moist, TM's normal bilaterally and normal external ear exam Expanded ENT Exam Nose exam: Absent sinus tenderness Nasal speculum exam: Bilateral: normal Mouth exam: Present other (there are multiple lesions on the inside of her lips and the inside of both her cheeks. ); Absent drooling Throat exam: Present tonsillar erythema Neck Neck exam: Present normal inspection, full ROM and trachea midline; Absent meningismus or lymphadenopathy Chest Chest inspection: Present normal inspection and symmetric chest wall rise; Absent tenderness Respiratory Respiratory exam: Present normal lung sounds bilaterally; Absent respiratory distress Cardiovascular Cardiovascular exam: Present regular rate and normal rhythm; Absent JVD Abdominal Exam Abdominal exam: Present soft and normal bowel sounds; Absent distention, tenderness or guarding Extremities Exam Extremities exam: Present normal inspection, full ROM and normal capillary refill; Absent calf tenderness Back Exam Back exam: Present normal inspection; Absent tenderness Neurological Exam Neurological exam: Present alert and oriented X3 Psychiatric Psychiatric exam: Present normal affect and normal mood Skin Skin exam: Present warm, dry, intact and normal color Lymphatic Lymphatic Findings: no adenopathy Medical Decision Making Medical Records Medical records reviewed: No I reviewed the patient's medical records. Screening: Per USPSTF and CDC recommendations, given the prevalence of disease in our region, it is our hospital?s policy to screen for HIV and viral Hepatitis for all patients aged 18 and over and those with ongoing risk factors. Michael Inquiry Pt receiving controlled substance: No Vital Signs: 09/16/24 18:05 Temperature 97.9 F Temperature Source Oral Pulse Rate [Left Radial] 71 Respiratory Rate 18 Blood Pressure [Left Arm] 124/73 Blood Pressure Mean [Left Arm] 90 02 Sat by Pulse Oximetry 100
[2024-09-16] MEDS: DEXAMETHASONE 4MG/ML 1ML VIAL 8 MG IM (18:48)
[2024-09-16 18:53] VITALS: BP 124/73; PULSE 71; RESP 18; TEMP 36.6
== END 2024-09-16 18:57 | disposition home or self-care (01) ==
PROVIDERS: Emergency Provider Nurse Practitioner Family
DX: B08.5 Enteroviral vesicular pharyngitis (principal)
CPT/HCPCS: 99212; G0381; J1100

== ENCOUNTER 2024-09-17 14:46 | Emergency (ER) | payer BC, SELFPAY ==
[2024-09-17] VITALS (9 sets, daily range): BP systolic 110–136; BP diastolic 60–82; PULSE 63–99; RESP 16–18; TEMP 36.7–36.9; O2SAT 47–100; BMI 20.7
--- NOTE | 2024-09-17 14:53 | ED_ITS ---
Discharge Plan Disposition Patient Disposition: Home, Self-Care Condition: Good Prescriptions Prescriptions: New prednisone 50 mg tablet 50 mg PO DAILY 5 Days Qty: 5 0RF benzonatate 200 mg capsule 200 mg PO TID PRN (Reason: cough) Qty: 20 0RF promethazine 25 mg tablet 25 mg PO Q6H PRN (Reason: sedation) Qty: 14 0RF No Action triamcinolone acetonide 0.1 % paste 1 applic dental BID PRN (Reason: mouth irritation) Qty: 5 0RF Rx Instructions: use after food and/or drink and/or oral hygiene prednisone 10 mg tablet 10 mg PO BID 3 Days Qty: 6 0RF Referrals Follow up/Referrals: Alfredito Dial DO [Staff Physician] - See instructions Provider,Referral, [Primary Care Provider] - See instructions Activity Restrictions/Add. Instructions Additional Instructions/Restrictions: As we discussed I have referred you to Dr. Dial. Please call to make your follow-up appointment. If you have any new recurrent or worsening symptoms return to the ER as needed. Clinical Impressions Clinical Impression: Acute viral syndrome Chest pain Qualifiers: Chest pain type: unspecified Qualified Code(s): R07.9 - Chest pain, unspecified Print Language Print Language: Bulgarian Discharge ED Provider: Josiah Rao General Adult HPI <JORDAN Og - Last Filed: 09/17/24 21:10> General Chief complaint: Recheck/Abnormal Lab/Rx Stated complaint: SOA vomiting body aches body tingling Time Seen by Provider: 09/17/24 14:53 History of Present Illness HPI narrative: Patient presents for evaluation of dyspnea vomiting body aches and paresthesias. Patient was seen yesterday at the [facility] and diagnosed with herpangina's and prescribed Magic mouthwash and oral steroids. Patient however has had no improvement and reports that she began having shortness of breath increasing body aches that include chest pain nausea and vomiting. Today she began having tingling of her feet and hands. She denies chills hemoptysis hematochezia melena hematemesis hematuria back pain flank pain. She states that her chest pain is located in the epigastrium that is worse with a deep breath. Patient has no chronic medical problems other than ankylosing spondylitis and has a family history of Sadiq's in her mother and grandmother. Related Data Previous Rx's ?Medication ?Instructions ?Recorded prednisone 10 mg tablet 10 mg PO BID 3 days #6 tabs 09/16/24 triamcinolone acetonide 0.1 % 1 applic dental BID PRN mouth 09/16/24 dental paste irritation #5 grams benzonatate 200 mg capsule 200 mg PO TID PRN cough #20 caps 09/17/24 prednisone 50 mg tablet 50 mg PO DAILY 5 days #5 tabs 09/17/24 promethazine 25 mg tablet 25 mg PO Q6H PRN sedation #14 tabs 09/17/24 Allergies Allergy/AdvReac Type Severity Reaction Status Date / Time ondansetron (From Zofran) Allergy Mild Vomiting Verified 09/17/24 15:27 codeine Allergy Vomiting Verified 09/17/24 15:27 [facility] <JORDAN Og - Last Filed: 09/17/24 21:10> [facility] Disclaimer: The information contained in this section may have been updated after the patient was seen, as this information can be updated by other users. Medical History (Updated 09/17/24 @ 18:57 by JORDAN Og) Migraine Surgical History (Updated 04/23/24 @ 16:31 by Anupama Almonte RN) History of tympanostomy tube placement History of tonsillectomy History of section Social History Smoking Status: Never smoker alcohol intake: never current occupational status: other Travel in the last 8 weeks: None Have you lived/traveled outside [place] in past 30 days?: No Contact w/someone who lives/traveled outside US past 30 days?: No Exposure to someone with infectious disease in past 14 days?: No Do you have a fever (greater than 100.4 F or 38 C)?: No Have you tested positive for COVID-19: No Exposed to someone with COVID-19 in past 14 days?: No Do you have a sore throat?: No Do you have a cough?: No Do you have any weakness?: Yes Do you have any diarrhea?: Yes Are you experiencing any unusual bleeding?: No Do you have any muscle aches/pain?: No Do you have any abdominal pain?: No Are you experiencing loss of taste or smell?: No Other Medical History Have you received the Flu Vaccine for this season: No Have you received the Pneumonia Vaccine: No <JORDAN Og - Last Filed: 09/17/24 21:10> ROS Obtained: Yes Systems reviewed as appropriate & no additional complaints except as documented Physical Exam <JORDAN Og - Last Filed: 09/17/24 21:10> General General appearance: alert Neck Neck exam: Present lymphadenopathy Respiratory Respiratory exam: Present normal lung sounds bilaterally Cardiovascular Cardiovascular exam: Present regular rate Neurological Exam Neurological exam: Present alert and oriented X3 Medical Decision Making <JORDAN Og - Last Filed: 09/17/24 21:10> Medical Records Medical records reviewed: Yes I reviewed the patient's medical records. Screening: Per USPSTF and CDC recommendations, given the prevalence of disease in our region, it is our hospital?s policy to screen for HIV and viral Hepatitis for all patients aged 18 and over and those with ongoing risk factors. Michael Inquiry Pt receiving controlled substance: No Vital Signs: 09/17/24 15:07 09/17/24 15:15 09/17/24 15:17 Temperature 98.4 F Temperature Source Oral Pulse Rate 63 89 Pulse Rate [Left] 83 Respiratory Rate 18 Blood Pressure Blood Pressure [Right Arm] 136/82 Blood Pressure Mean [Right Arm] 100 Blood Pressure Source [Right Arm] Automatic Cuff Blood Pressure Position [Right Arm] Sitting 02 Sat by Pulse Oximetry 47 L 95 98 Oxygen Delivery Method Room Air 09/17/24 15:30 09/17/24 16:00 09/17/24 17:00 Temperature Temperature Source Pulse Rate 99 H 71 78 Pulse Rate [Left] Respiratory Rate Blood Pressure 115/61 116/71 115/75 Blood Pressure [Right Arm] Blood Pressure Mean [Right Arm] Blood Pressure Source [Right Arm] Blood Pressure Position [Right Arm] 02 Sat by Pulse Oximetry 100 100 100 Oxygen Delivery Method Room Air Room Air 09/17/24 17:30 09/17/24 19:06 09/17/24 19:07 Temperature 98.3 F 98.0 F Temperature Source Pulse Rate 70 69 71 Pulse Rate [Left] Respiratory Rate 16 16 Blood Pressure 113/60 110/62 110/66 Blood Pressure [Right Arm] Blood Pressure Mean [Right Arm] Blood Pressure Source [Right Arm] Blood Pressure Position [Right Arm] 02 Sat by Pulse Oximetry 100 Oxygen Delivery Method Lab Data Lab results reviewed: Yes I reviewed the patient's lab results. Lab Results 09/17/24 15:11: WBC 12.4 H, RBC 4.92, Hgb 14.6, Hct 42.6, MCV 86.6, MCH 29.7, MCHC 34.3, RDW 12.0, Plt Count 258, MPV 10.3, Neut % (Auto) 75.6, Lymph % (Auto) 16.6, [place] % (Auto) 7.3, Eos % (Auto) 0.0 L, Baso % (Auto) 0.2, Neut # (Auto) 9.4 H, Lymph # (Auto) 2.1, [place] # (Auto) 0.9, Eos # (Auto) 0.0, Baso # (Auto) 0.0, ESR 5, Sodium 142, Potassium 3.7, Chloride 106, Carbon Dioxide 25, Anion Gap 14.7, BUN 10, Creatinine 0.70, Estimated Creat Clear 123, Estimated GFR 102, Est GFR ( Amer) 123, Glucose 92, Calcium 10.1, Total Bilirubin 0.4, AST 23, ALT 20, Alkaline Phosphatase 81, C-Reactive Protein 0.3, NT-Pro-B Natriuret Pep 104, Total Protein 7.3, Albumin 4.8, Globulin 2.5, Albumin/Globulin Ratio 1.9 H, Lipase 114, Serum HCG, Qual Negative, HCV Ab HUBERT w/Rflx PCR Qn Negative 09/17/24 15:31: Chlamy pneumoniae PCR Not detected, Adenovirus (PCR) Not detected, B. pertussis DNA (PCR) Not detected, Coronavirus OC43 (PCR) Not detected, Coronavirus HKU1 (PCR) Not detected, Coronavirus 229E (PCR) Not detected, SARS-CoV-2 (PCR) Not detected, Coronavirus NL63 (PCR) Not detected, Human Metapneumovir PCR Not detected, Influenza A (H1) PCR Not detected, Influ A (H1N1/09) PCR Not detected, Influenza A (H3) PCR Not detected, Influenza Type A (PCR) Not detected, Influenza Type B (PCR) Not detected, M. pneumoniae (PCR) Not detected, Parainfluenza 1 (PCR) Not detected, Parainfluenza 2 (PCR) Not detected, Parainfluenza 3 (PCR) Not detected, Parainfluenza 4 (PCR) Not detected, RSV (PCR) Not detected, Entero/Rhino (PCR) Not detected 09/17/24 16:31: Urine Color Yellow, Urine Appearance Clear, Urine pH 6.0, Ur Specific [place] 1.025, Urine Protein Negative, Urine Glucose (UA) Negative, Urine Ketones Negative, Urine Blood Negative, Urine Nitrate Negative, Urine Bilirubin Negative, Urine Urobilinogen 0.2, Ur Leukocyte Esterase Negative, Urine RBC None, Urine WBC Occasional, Ur Squamous Epith Cells None, Urine Bacteria 1+ 09/17/24 15:11 09/17/24 15:11 Orders (Tests/Meds): ED MEDICATIONS Discontinued Medications Generic Name Dose Route Start Last Admin Trade Name Nakulq PRN Reason Stop Dose Admin Acetaminophen 1,000 mg 09/17/24 15:13 09/17/24 15:28 Acetaminophen 1,000mg/100ml Vial IV 09/17/24 15:14 1,000 mg ONCE ONE Administration Belladonna Alkaloids 60 ml 09/17/24 17:34 09/17/24 17:44 Belladonna Alkaloids 60 Ml Ml PO 09/17/24 17:35 60 ml ONCE ONE Administration Dexamethasone Sodium Phosphate 10 mg 09/17/24 15:13 09/17/24 15:28 Dexamethasone 4mg/Ml 5ml Mdv IV 09/17/24 15:14 10 mg ONCE ONE Administration Hydromorphone HCl 0.5 mg 09/17/24 16:47 09/17/24 16:57 Hydromorphone 2mg/Ml Syringe IV 09/17/24 16:48 0.5 mg ONCE ONE Administration Iopamidol 80 ml 09/17/24 17:11 09/17/24 17:12 Iopamidol-370 (76%);100ml Bottle IV 09/17/24 17:12 80 ml ONCE ONE Administration Ketorolac Tromethamine 15 mg 09/17/24 15:18 09/17/24 15:28 Ketorolac 30mg/Ml Vial IV 09/17/24 15:19 15 mg ONCE ONE Administration Promethazine HCl 25 mg 09/17/24 15:18 09/17/24 15:28 Promethazine Hcl 25mg/Ml 1ml Vial IV 09/17/24 15:19 25 mg ONCE ONE Administration Sodium Chloride 25 ml 09/17/24 15:18 09/17/24 15:28 Sodium Chloride 0.9% 25ml Bag IV 09/17/24 15:19 25 ml ONCE ONE Administration Sodium Chloride 50 ml 09/17/24 17:11 09/17/24 17:12 0.9 % Sodium Chloride 50 Ml Vial IV 09/17/24 17:12 50 ml ONCE ONE Administration Sodium Chloride 10 ml 09/17/24 17:11 09/17/24 17:12 Sodium Chloride 0.9% 10ml Syr (Rad Only) IV 09/17/24 17:12 10 ml ONCE ONE Administration ORDERS Category Date Time Status CT angio chest - dissection Stat Cat Scan 09/17/24 16:50 Completed Chest XR 2 view (NOT portable) [XR chest 2V] Stat Exams 09/17/24 15:14 Completed Antineutrophil Cytoplasmic Ab Routine Lab 09/17/24 15:11 Received BNP [NT Pro Brain Natriuretic Pep.] Stat Lab 09/17/24 15:11 Completed CBC w/Auto Diff [Complete Blood Count Auto Diff] Stat Lab 09/17/24 15:11 Completed CMP [Comprehensive Metabolic Panel] Stat Lab 09/17/24 15:11 Completed CRP [C-Reactive Protein] Stat Lab 09/17/24 15:11 Completed ESR [Erythrocyte Sedimentation Rate] Stat Lab 09/17/24 15:11 Completed Full Resp Panel w/COVID ([facility]) Routine Lab 09/17/24 15:31 Completed HCG Qualitative, Serum Stat Lab 09/17/24 15:11 Completed HIV Combo Stat Lab 09/17/24 15:11 Received Hepatitis C Ab Qual. W/ RFX Stat Lab 09/17/24 15:11 Completed Lipase Stat Lab 09/17/24 15:11 Completed UA [Urinalysis and Microscopic] Stat Lab 09/17/24 16:31 Completed Medical Decision Narrative: In summary patient is a 23-year-old female who presents to the emergency department for evaluation of shortness of breath myalgia chest pain and paresthesia. Patient is initially normotensive at 136/82 with a pulse of 63 breathing 18 times a minute with an O2 sat of 100% on room air upon arrival, and afebrile at 98.4. Physical exam is remarkable for clear breath sounds with no increased work of breathing, patient has no accessory muscle use, patient has has to palpation in the epigastrium below the xiphoid. However exam of the abdomen shows it to be soft with no rebound no guarding or rigidity normal bowel sounds. Examination of oropharynx reveals petechiae appearing lesions and the upper and lower lip and buccal recess but the posterior pharynx is normal with no lesions noted. Tongue is normal. There is no tongue protrusion. There is no cervical lymphadenopathy. There is no palatine lesions. Bilateral tympanic membranes are normal. Differential diagnosis includes viral infection versus vasculitis versus ACS etc. Initial workup will be conducted with hematologic labs plain film chest x-ray full respiratory panel. Initial interventions include Tylenol Toradol GI cocktail. Initial workup reviewed by me shows patient has a white count of 12.4 with an absolute neutrophil count of 9.4 chemistry panel is completely normal sed rate is 5 NT proBNP is 104 serum is negative lipase is 114 CRP is 0.3 urinalysis is bland and her respiratory panel is negative.. Upon repeat evaluation patient reported no improvement in her chest pain. Given the family history of Sadiq's I ordered a CTA of the chest. My informal interpretation showed no evidence of acute thrombus or acute processes prior to radiology read. I informed interpretation of her plain film x-ray also showed no acute processes.. Given this I had interactive discussion with the patient regarding her workup and findings. We discussed her paresthesias which have since resolved since arrival in the emergency department. I suspect that she may have had hyperventilation that led to her paresthesias. While we have ruled out any respiratory viral infections we have also ruled out any bacterial infections and believe her leukocytosis is related to the steroids that she started yesterday. It is possible but there remains diagnostic uncertainty whether or not she has Sadiq's or not. Given this we have increased her steroid dose given that she has likely acute viral syndrome given the lesions found in her mouth and her myalgias and Gianna arthritis. I have ordered an ANCA panel although the results would not be ready for several days. Patient is referred back to her PCP within 48 hours for recheck and close follow-up and ongoing management and care. Thus she is appropriate for discharge with strict return precautions. <Josiah Rao MD - Last Filed: 09/17/24 21:18> Vital Signs: 09/17/24 15:07 09/17/24 15:15 09/17/24 15:17 Temperature 98.4 F Temperature Source Oral Pulse Rate 63 89 Pulse Rate [Left] 83 Respiratory Rate 18 Blood Pressure Blood Pressure [Right Arm] 136/82 Blood Pressure Mean [Right Arm] 100 Blood Pressure Source [Right Arm] Automatic Cuff Blood Pressure Position [Right Arm] Sitting 02 Sat by Pulse Oximetry 47 L 95 98 Oxygen Delivery Method Room Air 09/17/24 15:30 09/17/24 16:00 09/17/24 17:00 Temperature Temperature Source Pulse Rate 99 H 71 78 Pulse Rate [Left] Respiratory Rate Blood Pressure 115/61 116/71 115/75 Blood Pressure [Right Arm] Blood Pressure Mean [Right Arm] Blood Pressure Source [Right Arm] Blood Pressure Position [Right Arm] 02 Sat by Pulse Oximetry 100 100 100 Oxygen Delivery Method Room Air Room Air 09/17/24 17:30 09/17/24 19:06 09/17/24 19:07 Temperature 98.3 F 98.0 F Temperature Source Pulse Rate 70 69 71 Pulse Rate [Left] Respiratory Rate 16 16 Blood Pressure 113/60 110/62 110/66 Blood Pressure [Right Arm] Blood Pressure Mean [Right Arm] Blood Pressure Source [Right Arm] Blood Pressure Position [Right Arm] 02 Sat by Pulse Oximetry 100 Oxygen Delivery Method Lab Data Lab Results 09/17/24 15:11: WBC 12.4 H, RBC 4.92, Hgb 14.6, Hct 42.6, MCV 86.6, MCH 29.7, MCHC 34.3, RDW 12.0, Plt Count 258, MPV 10.3, Neut % (Auto) 75.6, Lymph % (Auto) 16.6, [place] % (Auto) 7.3, Eos % (Auto) 0.0 L, Baso % (Auto) 0.2, Neut # (Auto) 9.4 H, Lymph # (Auto) 2.1, [place] # (Auto) 0.9, Eos # (Auto) 0.0, Baso # (Auto) 0.0, ESR 5, Sodium 142, Potassium 3.7, Chloride 106, Carbon Dioxide 25, Anion Gap 14.7, BUN 10, Creatinine 0.70, Estimated Creat Clear 123, Estimated GFR 102, Est GFR ( Amer) 123, Glucose 92, Calcium 10.1, Total Bilirubin 0.4, AST 23, ALT 20, Alkaline Phosphatase 81, C-Reactive Protein 0.3, NT-Pro-B Natriuret Pep 104, Total Protein 7.3, Albumin 4.8, Globulin 2.5, Albumin/Globulin Ratio 1.9 H, Lipase 114, Serum HCG, Qual Negative, HCV Ab HUBERT w/Rflx PCR Qn Negative 09/17/24 15:31: Chlamy pneumoniae PCR Not detected, Adenovirus (PCR) Not detected, B. pertussis DNA (PCR) Not detected, Coronavirus OC43 (PCR) Not detected, Coronavirus HKU1 (PCR) Not detected, Coronavirus 229E (PCR) Not detected, SARS-CoV-2 (PCR) Not detected, Coronavirus NL63 (PCR) Not detected, Human Metapneumovir PCR Not detected, Influenza A (H1) PCR Not detected, Influ A (H1N1/09) PCR Not detected, Influenza A (H3) PCR Not detected, Influenza Type A (PCR) Not detected, Influenza Type B (PCR) Not detected, M. pneumoniae (PCR) Not detected, Parainfluenza 1 (PCR) Not detected, Parainfluenza 2 (PCR) Not detected, Parainfluenza 3 (PCR) Not detected, Parainfluenza 4 (PCR) Not detected, RSV (PCR) Not detected, Entero/Rhino (PCR) Not detected 09/17/24 16:31: Urine Color Yellow, Urine Appearance Clear, Urine pH 6.0, Ur Specific [place] 1.025, Urine Protein Negative, Urine Glucose (UA) Negative, Urine Ketones Negative, Urine Blood Negative, Urine Nitrate Negative, Urine Bilirubin Negative, Urine Urobilinogen 0.2, Ur Leukocyte Esterase Negative, Urine RBC None, Urine WBC Occasional, Ur Squamous Epith Cells None, Urine Bacteria 1+ Orders (Tests/Meds): ED MEDICATIONS Discontinued Medications Generic Name Dose Route Start Last Admin Trade Name Freq PRN Reason Stop Dose Admin Acetaminophen 1,000 mg 09/17/24 15:13 09/17/24 15:28 Acetaminophen 1,000mg/100ml Vial IV 09/17/24 15:14 1,000 mg ONCE ONE Administration Belladonna Alkaloids 60 ml 09/17/24 17:34 09/17/24 17:44 Belladonna Alkaloids 60 Ml Ml PO 09/17/24 17:35 60 ml ONCE ONE Administration Dexamethasone Sodium Phosphate 10 mg 09/17/24 15:13 09/17/24 15:28 Dexamethasone 4mg/Ml 5ml Mdv IV 09/17/24 15:14 10 mg ONCE ONE Administration Hydromorphone HCl 0.5 mg 09/17/24 16:47 09/17/24 16:57 Hydromorphone 2mg/Ml Syringe IV 09/17/24 16:48 0.5 mg ONCE ONE Administration Iopamidol 80 ml 09/17/24 17:11 09/17/24 17:12 Iopamidol-370 (76%);100ml Bottle IV 09/17/24 17:12 80 ml ONCE ONE Administration Ketorolac Tromethamine 15 mg 09/17/24 15:18 09/17/24 15:28 Ketorolac 30mg/Ml Vial IV 09/17/24 15:19 15 mg ONCE ONE Administration Promethazine HCl 25 mg 09/17/24 15:18 09/17/24 15:28 Promethazine Hcl 25mg/Ml 1ml Vial IV 09/17/24 15:19 25 mg ONCE ONE Administration Sodium Chloride 25 ml 09/17/24 15:18 09/17/24 15:28 Sodium Chloride 0.9% 25ml Bag IV 09/17/24 15:19 25 ml ONCE ONE Administration Sodium Chloride 50 ml 09/17/24 17:11 09/17/24 17:12 0.9 % Sodium Chloride 50 Ml Vial IV 09/17/24 17:12 50 ml ONCE ONE Administration Sodium Chloride 10 ml 09/17/24 17:11 09/17/24 17:12 Sodium Chloride 0.9% 10ml Syr (Rad Only) IV 09/17/24 17:12 10 ml ONCE ONE Administration ORDERS Category Date Time Status CT angio chest - dissection Stat Cat Scan 09/17/24 16:50 Completed Chest XR 2 view (NOT portable) [XR chest 2V] Stat Exams 09/17/24 15:14 Completed Antineutrophil Cytoplasmic Ab Routine Lab 09/17/24 15:11 Received BNP [NT Pro Brain Natriuretic Pep.] Stat Lab 09/17/24 15:11 Completed CBC w/Auto Diff [Complete Blood Count Auto Diff] Stat Lab 09/17/24 15:11 Completed CMP [Comprehensive Metabolic Panel] Stat Lab 09/17/24 15:11 Completed CRP [C-Reactive Protein] Stat Lab 09/17/24 15:11 Completed ESR [Erythrocyte Sedimentation Rate] Stat Lab 09/17/24 15:11 Completed Full Resp Panel w/COVID ([facility]) Routine Lab 09/17/24 15:31 Completed HCG Qualitative, Serum Stat Lab 09/17/24 15:11 Completed HIV Combo Stat Lab 09/17/24 15:11 Received Hepatitis C Ab Qual. W/ RFX Stat Lab 09/17/24 15:11 Completed Lipase Stat Lab 09/17/24 15:11 Completed UA [Urinalysis and Microscopic] Stat Lab 09/17/24 16:31 Completed ECG Data Tracing #1: I reviewed this ECG and interpreted as documented below: (Sinus rhythm 99 bpm with incomplete right bundle branch block morphology. Ventricular rate 99, HI 137, QRS 114, QTc 389. Normal axis. No acute ischemic change) Medical Decision Narrative: In summary patient is a 23-year-old female who presents to the emergency department for evaluation of shortness of breath myalgia chest pain and paresthesia. Patient is initially normotensive at 136/82 with a pulse of 63 breathing 18 times a minute with an O2 sat of 100% on room air upon arrival, and afebrile at 98.4. Physical exam is remarkable for clear breath sounds with no increased work of breathing, patient has no accessory muscle use, patient has has to palpation in the epigastrium below the xiphoid. However exam of the abdomen shows it to be soft with no rebound no guarding or rigidity normal bowel sounds. Examination of oropharynx reveals petechiae appearing lesions and the upper and lower lip and buccal recess but the posterior pharynx is normal with no lesions noted. Tongue is normal. There is no tongue protrusion. There is no cervical lymphadenopathy. There is no palatine lesions. Bilateral tympanic membranes are normal. Differential diagnosis includes viral infection versus vasculitis versus ACS etc. Initial workup will be conducted with hematologic labs plain film chest x-ray full respiratory panel. Initial interventions include Tylenol Toradol GI cocktail. Initial workup reviewed by me shows patient has a white count of 12.4 with an absolute neutrophil count of 9.4 chemistry panel is completely normal sed rate is 5 NT proBNP is 104 serum is negative lipase is 114 CRP is 0.3 urinalysis is bland and her respiratory panel is negative.. Upon repeat evaluation patient reported no improvement in her chest pain. Given the family history of Sadiq's I ordered a CTA of the chest. My informal interpretation showed no evidence of acute thrombus or acute processes prior to radiology read. I informed interpretation of her plain film x-ray also showed no acute processes.. Given this I had interactive discussion with the patient regarding her workup and findings. We discussed her paresthesias which have since resolved since arrival in the emergency department. I suspect that she may have had hyperventilation that led to her paresthesias. While we have ruled out any respiratory viral infections we have also ruled out any bacterial infections and believe her leukocytosis is related to the steroids that she started yesterday. It is possible but there remains diagnostic uncertainty whether or not she has Sadiq's or not. Given this we have increased her steroid dose given that she has likely acute viral syndrome given the lesions found in her mouth and her myalgias and Gianna arthritis. I have ordered an ANCA panel although the results would not be ready for several days. Patient is referred back to her PCP within 48 hours for recheck and close follow-up and ongoing management and care. Thus she is appropriate for discharge with strict return precautions. I independently examined and interviewed patient. Seems very viral. Patient does have intraoral lesions on her lips, buccal mucosa, as well as palate. Also states she has cough, body aches, tingling in her hands, feet, face, as well as a plethora of complaints. After talking to patient, my biggest concern is that she may have vasculitis. States that her grandmother and mother both struggled with granulomatosis with polyangiitis. ESR and CRP were ordered as well as urine. Independent interpretation of workup really unconcerning. Given concern for vasculitis, other labs ordered as well as CT angiogram to evaluate for potential pulmonary involvement. This was negative on independent interpretation because patient at baseline without signs or symptoms of clinical decompensation, deemed appropriate for discharge. Results were relayed to patient who voiced understanding and were agreeable to outpatient management and follow up. I discussed my clinical impression with patient and answered all questions. At this time, the evidence for any other entities in the differential is insufficient to warrant any further testing or ED observation. This was explained as well. Advisory was given that persistent or worsening symptoms require further evaluation. I confirmed the understanding of this discussion. MD [facility] <JORDAN Og - Last Filed: 09/17/24 21:10> Critical Care Time Critical Care Time: No
--- NOTE | 2024-09-17 15:04 | ECG_ITS ---
APPROVED REPORT Exam: Resting ECG HR:99 bpm ECG Measurements Heart Rate 99 AXES IN 137 P 67 QRSd 114 QRS 67 QT 333 T 52 QTc 389 Conclusion Sinus rhythm 99 bpm. Incomplete right bundle branch block Electronically signed by : KIRSTIE SUAZO, 09/17/2024 23:08:44
--- NOTE | 2024-09-17 15:14 | XR_ITS ---
FINAL REPORT TECHNIQUE: Chest PA & Lateral CLINICAL HISTORY: Chest pain shortness of breath COMPARISON: None FINDINGS: 2 views of the chest were performed. The heart size is normal. The mediastinum is within normal limits. There is no acute cardiopulmonary process. There are no pleural effusions. There is no pneumothorax. The bony thorax appears intact. IMPRESSION: No acute cardiopulmonary process. Reviewed, Interpreted and Dictated by José Miguel Liu MD Transcribed by Genny Medrano Authenticated and [facility]
[2024-09-17 15:26] LABS: Basophils % 0.2 % (0.1-2.0); Hematocrit 42.6 % (37.0-47.0); Hemoglobin 14.6 g/dL (12.2-16.2); Lymphocytes # 2.1 K/mm3 (0.7-4.5); Lymphocytes % 16.6 % (10-50); Mean Corpuscular HGB Conc 34.3 g/dL (31.8-35.4); Mean Corpuscular Hemoglobin 29.7 pg (27.0-31.2); Mean Corpuscular Volume 86.6 fl (81-99); Mean Platelet Volume 10.3 fl (7.4-10.4); Monocytes # 0.9 K/mm3 (0.1-1.0); Monocytes % 7.3 % (1.7-9.3); Neutrophils # 9.4 K/mm3 (1.8-7.8); Neutrophils % 75.6 % (37.0-80.0); Platelet Count 258 K/mm3 (142-424); Red Blood Count 4.92 M/mm3 (4.20-5.40); White Blood Count 12.4 K/mm3 (4.8-10.8)
[2024-09-17] MEDS: SODIUM CHLORIDE 0.9% 25ML BAG 25 ML IV (15:28)
[2024-09-17] MEDS: PROMETHAZINE HCL 25MG/ML 1ML VIAL 25 MG IV (15:28)
[2024-09-17] MEDS: ACETAMINOPHEN 1,000MG/100ML VIAL 1000 MG IV (15:28)
[2024-09-17] MEDS: DEXAMETHASONE 4MG/ML 5ML MDV 10 MG IV (15:28)
[2024-09-17] MEDS: KETOROLAC 30MG/ML VIAL 15 MG IV (15:28)
[2024-09-17 15:32] LABS: Alanine Aminotransferase 20 U/L (12-78); Albumin Level 4.8 g/dl (3.5-5.0); Albumin/Globulin Ratio 1.9 (1.1-1.8); Alkaline Phosphatase 81 U/L (38-126); Anion Gap 14.7 mEq/L (5-15); Aspartate Amino Transferase 23 U/L (14-36); Bilirubin,Total 0.4 mg/dl (0.2-1.3); Blood Urea Nitrogen 10 mg/dl (7-17); Calcium 10.1 mg/dl (8.4-10.2); Carbon Dioxide 25 mmol/L (22.0-30.0); Chloride 106 mmol/L (98-107); Creatinine Clearance Estimated 123 mL/min (50-200); Estimated Glomerular Filt Rate 102 ml/min (>60); GFR (African American) 123 ML/MIN (>60); Globulin 2.5 g/dL (1.3-3.2); Glucose 92 mg/dl (74-100); Potassium 3.7 mmoL/L (3.5-5.1); Sodium 142 mmol/L (136-145); Total Protein,Serum 7.3 g/dl (6.3-8.2)
[2024-09-17 15:35] LABS: Adenovirus,PCR Not Detected (NotDetected); Bordetella Pertussis Not Detected (NotDetected); Chlamydophila Pneumoniae, PCR Not Detected (NotDetected); Coronavirus 19, PCR Not Detected (NotDetected); Coronavirus 229E Not Detected (NotDetected); Coronavirus NL63 Not Detected (NotDetected); Coronavirus OC43 Not Detected (NotDetected); Coronovirus HKU1,PCR Not Detected (NotDetected); Human Metapneumovirus Not Detected (NotDetected); Influenza A, PCR Not Detected (NotDetected); Influenza AH1, 2009 Not Detected (NotDetected); Influenza AH1, PCR Not Detected (NotDetected); Influenza AH3,PCR Not Detected (NotDetected); Influenza B, PCR Not Detected (NotDetected); Mycoplasma Pneumoniae, PCR Not Detected (NotDetected); Parainfluenza 1, PCR Not Detected (NotDetected); Parainfluenza 2, PCR Not Detected (NotDetected); Parainfluenza 3, PCR Not Detected (NotDetected); Parainfluenza 4, PCR Not Detected (NotDetected); Respiratory Syncytial Virus Not Detected (NotDetected); Rhinovirus/Enterovirus Not Detected (NotDetected)
[2024-09-17 15:58] LABS: HCG Qualitative, Serum Negative (Negative); Lipase 114 U/L (23-300)
[2024-09-17 16:16] LABS: NT Pro Brain Natriuretic Pep. 104 pg/mL (0-125)
[2024-09-17 16:37] LABS: Microscopic, Urine URINE MICROSCOPIC (MICROSCOPIC)
[2024-09-17 16:42] LABS: Appearance,Urine CLEAR (Clear); Bilirubin,Urine Negative (Negative); Blood, Urine Negative (Negative); Color,Urine YELLOW (Yellow); Glucose,Urine (UA) Negative (Negative); Ketones,Urine Negative (Negative); Leukocyte Esterase,Urine Negative (Negative); Nitrate,Urine Negative (Negative); Protein,Urine Negative (Negative); Specific Gravity, Urine 1.025 (1.005-1.030); Urobilinogen,Urine 0.2 EU/dl (0.2)
--- NOTE | 2024-09-17 16:50 | CT_ITS ---
PROCEDURE INFORMATION: Exam: CTA Chest With Contrast Exam date and time: 09/17/2024 5:07 PM Age: 23 years old Clinical indication: Pain; Chest pressure; Additional info: Chest pain TECHNIQUE: Imaging protocol: Computed tomographic angiography of the chest with contrast. Exam focused on the arteries. 3D rendering (Not supervised by radiologist): MIP and/or 3D reconstructed images were created by the technologist. Radiation optimization: All CT scans at this facility use at least one of these dose optimization techniques: automated exposure control; mA and/or kV adjustment per patient size (includes targeted exams where dose is matched to clinical indication); or iterative reconstruction. Contrast material: ISOVUE 370; Contrast volume: 80 ml; Contrast route: INTRAVENOUS (IV); COMPARISON: CR XR CHEST 2V 09/17/2024 3:54 PM FINDINGS: Pulmonary arteries: No pulmonary embolism. Aorta: Unremarkable. No aneurysm. Lungs: No consolidation. Pleural spaces: No significant pleural effusion. No pneumothorax. Heart: No cardiomegaly. No pericardial effusion. Lymph nodes: No pathologically enlarged lymph nodes. Bones/joints: No acute fracture. Soft tissues: Unremarkable. IMPRESSION: No CT evidence of pulmonary embolism.
[2024-09-17 16:55] LABS: Hepatitis C Ab Qual. W/ RFX NEGATIVE (Negative)
[2024-09-17] MEDS: HYDROMORPHONE 2MG/ML SYRINGE 0.5 MG IV (16:57)
[2024-09-17 17:03] LABS: C-Reactive Protein 0.3 mg/L (0-4)
[2024-09-17] MEDS: 0.9 % SODIUM CHLORIDE 50 ML VIAL IV (17:12)
[2024-09-17] MEDS: SODIUM CHLORIDE 0.9% 10ML SYR (RAD ONLY) 10 ML IV (17:12)
[2024-09-17] MEDS: IOPAMIDOL-370 (76%);100ML BOTTLE 80 ML IV (17:12)
[2024-09-17 17:27] LABS: Erythrocyte Sedimentation Rate 5 mm/hr (0-20)
[2024-09-17] MEDS: BELLADONNA ALKALOIDS 60 ML ML PO (17:44)
[2024-09-17 18:11] LABS: Bacteria,Urine 1+ /lpf; WBC,Urine Occasional #/hpf (0-3)
[2024-09-17 23:00] LABS: HIV Combo NEGATIVE (Negative)
[2024-09-19 16:11] LABS: Cytoplasmic (C-ANCA) <1:20 titer (Neg:<1:20); Perinuclear (P-ANCA) <1:20 titer (Neg:<1:20)
== END 2024-09-17 19:07 | disposition home or self-care (01) ==
PROVIDERS: Physician Assistant; Emergency Provider Emergency Medicine
DX: R07.9 Chest pain, unspecified (principal); B34.9 Viral infection, unspecified; R06.00 Dyspnea, unspecified; R06.02 Shortness of breath; R11.2 Nausea with vomiting, unspecified; M79.10 Myalgia, unspecified site; R20.2 Paresthesia of skin
CPT/HCPCS: 71046; 71275; 80053; 81001; 83690; 83880; 84703; 85025; 85651; 86036; 86140; 86803; 87389; 87633; 93005; 96374; 96375; 99285; J0131; J1100; J1171; J1885; J2550; Q9967

== ENCOUNTER 2024-09-20 15:43 | Emergency (ER) | payer BC, SELFPAY ==
[2024-09-20] VITALS (15 sets, daily range): BP systolic 107–126; BP diastolic 67–86; PULSE 67–112; RESP 12–23; TEMP 37–37.1; O2SAT 98–100; BMI 20.7
--- NOTE | 2024-09-20 15:47 | PC.NURSE ---
DR LUCERO AT BEDSIDE
--- NOTE | 2024-09-20 16:00 | CT_ITS ---
PROCEDURE INFORMATION: Exam: CT Head Without Contrast Exam date and time: 09/20/2024 4:44 PM Age: 23 years old Clinical indication: Visual disturbance; Additional info: Diplopia, L sided vertiginous symptoms TECHNIQUE: Imaging protocol: Computed tomography of the head without contrast. Radiation optimization: All CT scans at this facility use at least one of these dose optimization techniques: automated exposure control; mA and/or kV adjustment per patient size (includes targeted exams where dose is matched to clinical indication); or iterative reconstruction. COMPARISON: No relevant prior studies available. FINDINGS: Brain: Normal. No hemorrhage. Unremarkable white matter. No mass effect. Cerebral ventricles: No ventriculomegaly. Paranasal sinuses: Visualized sinuses are unremarkable. No fluid levels. Mastoid air cells: Visualized mastoid air cells are well aerated. Bones: Unremarkable. No acute fracture. Soft tissues: Unremarkable. IMPRESSION: No acute intracranial abnormality.
--- NOTE | 2024-09-20 16:00 | CT_ITS ---
PROCEDURE INFORMATION: Exam: CTA Head With Contrast, Venography Exam date and time: 09/20/2024 4:46 PM Age: 23 years old Clinical indication: Visual disturbance; Diplopia; Additional info: L sided vertigo, horizontal diplopia TECHNIQUE: Imaging protocol: Computed tomography angiography of the head with contrast. Exam focused on the veins. 3D rendering (Not supervised by radiologist): MIP and/or 3D reconstructed images were created by the technologist. Radiation optimization: All CT scans at this facility use at least one of these dose optimization techniques: automated exposure control; mA and/or kV adjustment per patient size (includes targeted exams where dose is matched to clinical indication); or iterative reconstruction. Contrast material: ISOVUE 370; Contrast volume: 80 ml; Contrast route: INTRAVENOUS (IV); COMPARISON: CT ANGIO HEAD 09/20/2024 4:46 PM FINDINGS: Superior sagittal sinus: Superior sagittal sinus is patent. Torcula is patent. Deep cerebral veins: Internal cerebral veins are patent. Straight sinus: Straight sinus is patent. Transverse sinuses: Transverse sinuses are patent. Sigmoid sinuses: Sigmoid sinuses are patent. Internal jugular veins: Patent Veins: Cavernous sinuses are patent. Brain: See Pituitary gland and sella finding. Pituitary gland and sella: Pituitary infundibulum appears thickened/hyperenhancing measuring 4 mm diameter. This is a nonspecific finding. Differential considerations include lymphocytic hypophysitis, histiocytosis, neurosarcoidosis, congenital variant, or germinoma. Recommend nonemergent pituitary protocol MRI to further characterize. No gross mass effect on the optic chiasm is appreciated. Cerebral ventricles: No ventriculomegaly. Soft tissues: Unremarkable. IMPRESSION: 1. Thickened somewhat hyperenhancing pituitary infundibulum. In this age group infectious/inflammatory processes are the leading considerations, detailed above, although congenital variant, germinoma, or metastasis are additional possibilities. 2. Recommend nonemergent MRI with pituitary protocol.
--- NOTE | 2024-09-20 16:00 | CT_ITS ---
PROCEDURE INFORMATION: Exam: CTA Neck With Contrast Exam date and time: 09/20/2024 4:46 PM Age: 23 years old Clinical indication: Visual disturbance; Additional info: Binocular diplopia, L vertigo TECHNIQUE: Imaging protocol: Computed tomographic angiography of the neck with contrast. Exam focused on the cervical segments of the vasculature. 3D rendering (Not supervised by radiologist): MIP and/or 3D reconstructed images were created by the technologist. Radiation optimization: All CT scans at this facility use at least one of these dose optimization techniques: automated exposure control; mA and/or kV adjustment per patient size (includes targeted exams where dose is matched to clinical indication); or iterative reconstruction. Contrast material: ISOVUE 370; Contrast volume: 80 ml; Contrast route: INTRAVENOUS (IV); COMPARISON: CT ANGIO HEAD 09/20/2024 4:46 PM FINDINGS: Right common carotid artery: Normal. No stenosis. No dissection or occlusion. Right internal carotid artery: Moderate-severe short segment tortuosity of the midcervical segment. No stenosis. No dissection or occlusion. Right external carotid artery: Normal. No stenosis. No dissection or occlusion. Left common carotid artery: Normal. No stenosis. No dissection or occlusion. Left internal carotid artery: Moderate-severe short segment tortuosity of the midcervical segment. No stenosis. No dissection or occlusion. Left external carotid artery: Normal. No stenosis. No dissection or occlusion. Right vertebral artery: Normal. No stenosis. No dissection or occlusion. Left vertebral artery: Normal. No stenosis. No dissection or occlusion. Brachiocephalic artery: The brachiocephalic artery is unremarkable. Right subclavian artery: The right subclavian artery is unremarkable. Left subclavian artery: The left subclavian artery is unremarkable. Aorta: The visualized aortic arch is unremarkable. Thyroid: The thyroid gland is unremarkable. Soft tissues: No significant soft tissue swelling or hematoma. Bones/joints: No acute osseous abnormalities are identified. Lungs: The visualized pulmonary apices are clear. IMPRESSION: 1. No acute findings. No evidence of arterial occlusion, significant stenosis, dissection, or aneurysm/pseudoaneurysm. 2. Bilateral symmetrical moderate-severe short segment tortuosity of the ICA midcervical segments. This has been described with connective tissue disease. REFERENCES: NASCET CRITERIA. The degree of stenosis in the cervical segment of the internal carotid artery is based on NASCET criteria. Normal is no stenosis. Mild is less than 50% stenosis. Moderate is 50-69% stenosis. Severe is 70% to 99% stenosis. Total occlusion is no detectable patent lumen.
--- NOTE | 2024-09-20 16:00 | CT_ITS ---
PROCEDURE INFORMATION: Exam: CTA Head With Contrast, Arteriography Exam date and time: 09/20/2024 4:46 PM Age: 23 years old Clinical indication: Visual disturbance; Diplopia; Additional info: Binocular diplopia, L vertigo TECHNIQUE: Imaging protocol: Computed tomographic angiography of the head with contrast. Exam focused on the arteries. 3D rendering (Not supervised by radiologist): MIP and/or 3D reconstructed images were created by the technologist. Radiation optimization: All CT scans at this facility use at least one of these dose optimization techniques: automated exposure control; mA and/or kV adjustment per patient size (includes targeted exams where dose is matched to clinical indication); or iterative reconstruction. Contrast material: ISOVUE 370; Contrast volume: 80 ml; Contrast route: INTRAVENOUS (IV); COMPARISON: CT VENOGRAM HEAD 09/20/2024 4:46 PM FINDINGS: ANTERIOR CIRCULATION: Right internal carotid artery: The right ICA petrous, cavernous, and supraclinoid segments are unremarkable. Right middle cerebral artery: Unremarkable. No occlusion or significant stenosis. No aneurysm. Right anterior cerebral artery: Unremarkable. No occlusion or significant stenosis. No aneurysm. The anterior communicating artery is unremarkable. Left internal carotid artery: The left ICA petrous, cavernous, and supraclinoid segments are unremarkable. Left middle cerebral artery: Unremarkable. No occlusion or significant stenosis. No aneurysm. Left anterior cerebral artery: Unremarkable. No occlusion or significant stenosis. No aneurysm. POSTERIOR CIRCULATION: Right vertebral artery: Unremarkable. No occlusion or significant stenosis. No aneurysm. Left vertebral artery: Unremarkable. No occlusion or significant stenosis. No aneurysm. Basilar artery: Unremarkable. No occlusion or significant stenosis. No aneurysm. Right posterior cerebral artery: Small to moderate-sized right posterior communicating artery present. No occlusion or significant stenosis. No aneurysm. Left posterior cerebral artery: Small left posterior communicating artery present. No occlusion or significant stenosis. No aneurysm. Veins: The dural venous sinuses and major cortical veins enhance appropriately without evidence of thrombosis. Brain: No enhancing brain lesions or vascular malformations are identified. Cerebral ventricles: No ventriculomegaly. Bones/joints: Unremarkable. No acute fracture. Soft tissues: Unremarkable. IMPRESSION: 1. No evidence of large vessel occlusion or significant stenosis. No evidence of arterial dissection or aneurysm/pseudoaneurysm. 2. No acute findings.
--- NOTE | 2024-09-20 16:05 | ED_ITS ---
Discharge Plan Disposition Patient Disposition: Xfer Short-Term Hosp Chief Complaint: Weakness Prescriptions Prescriptions: No Action triamcinolone acetonide 0.1 % paste 1 applic dental BID PRN (Reason: mouth irritation) Qty: 5 0RF Rx Instructions: use after food and/or drink and/or oral hygiene prednisone 10 mg tablet 10 mg PO BID 3 Days Qty: 6 0RF prednisone 50 mg tablet 50 mg PO DAILY 5 Days Qty: 5 0RF benzonatate 200 mg capsule 200 mg PO TID PRN (Reason: cough) Qty: 20 0RF promethazine 25 mg tablet 25 mg PO Q6H PRN (Reason: sedation) Qty: 14 0RF Referrals Follow up/Referrals: Provider,Referral, MD [Primary Care Provider] - See instructions Activity Restrictions/Add. Instructions Additional Instructions/Restrictions: [facility] and they are expecting you. Clinical Impressions Clinical Impression: Pituitary abnormality, Diplopia, Paresthesias Stand Alone Forms Stand Alone Forms: Transfer Record - ED Print Language Print Language: Uzbek Discharge ED Provider: Holland Dinh General Adult HPI General Chief complaint: Weakness Stated complaint: weakness,nausea,neck pain Time Seen by Provider: 09/20/24 15:45 History of Present Illness HPI narrative: Patient is 23-year-old with past medical history of ankylosing spondylitis not on medical therapy who presents emergency department for evaluation of multiple complaints. Previously she was seen in the emergency department for shortness of breath and chest pain ultimately workup was nonactionable and patient was discharged home. This was preceded by mouth ulcers which were seen in [facility] and diagnosed with herpangina for which they have resolved prior to today. However over the last 24 to 48 hours she has had horizontal diplopia, bilateral blurry vision (corrected vision 20/20 left eye and 20/50 in the right eye) and feels as if her limbs are tingling from the elbow down and knee down and global distribution. She feels as if she is dizzy and the room is going to the left. No falls. There is an accompanying global headache for which she has had migraines before but this is different, it is global and worse than the back of her head. No other acute complaints at this time. Related Data Previous Rx's ?Medication ?Instructions ?Recorded prednisone 10 mg tablet 10 mg PO BID 3 days #6 tabs 09/16/24 triamcinolone acetonide 0.1 % 1 applic dental BID PRN mouth 09/16/24 dental paste irritation #5 grams benzonatate 200 mg capsule 200 mg PO TID PRN cough #20 caps 09/17/24 prednisone 50 mg tablet 50 mg PO DAILY 5 days #5 tabs 09/17/24 promethazine 25 mg tablet 25 mg PO Q6H PRN sedation #14 tabs 09/17/24 Allergies Allergy/AdvReac Type Severity Reaction Status Date / Time ondansetron (From Zofran) Allergy Mild Vomiting Verified 09/17/24 15:27 codeine Allergy Vomiting Verified 09/17/24 15:27 [facility] Disclaimer: The information contained in this section may have been updated after the patient was seen, as this information can be updated by other users. Medical History (Updated 09/20/24 @ 20:56 by Holland Dinh MD) Migraine Surgical History (Updated 04/23/24 @ 16:31 by Anupama Almonte RN) History of tympanostomy tube placement History of tonsillectomy History of section Social History Smoking Status: Never smoker alcohol intake: never current occupational status: other Travel in the last 8 weeks: None Have you lived/traveled outside [place] in past 30 days?: No Contact w/someone who lives/traveled outside US past 30 days?: No Exposure to someone with infectious disease in past 14 days?: No Do you have a fever (greater than 100.4 F or 38 C)?: No Have you tested positive for COVID-19: No Exposed to someone with COVID-19 in past 14 days?: No Do you have a sore throat?: No Do you have a cough?: No Do you have any weakness?: Yes Do you have any diarrhea?: Yes Are you experiencing any unusual bleeding?: No Do you have any muscle aches/pain?: No Do you have any abdominal pain?: No Are you experiencing loss of taste or smell?: No Other Medical History Have you received the Flu Vaccine for this season: No Have you received the Pneumonia Vaccine: No ROS Obtained: Yes Systems reviewed as appropriate & no additional complaints except as documented Physical Exam General General appearance: alert and in no apparent distress Head Head exam: atraumatic and normocephalic Eye Eye exam: Present PERRL and EOMI (Intermittent left beating nystagmus, no skew) ENT ENT exam: Present mucous membranes moist Neck Neck exam: Present normal inspection Chest Chest inspection: Present normal inspection and symmetric chest wall rise Respiratory Respiratory exam: Present normal lung sounds bilaterally; Absent respiratory distress Cardiovascular Cardiovascular exam: Present regular rate and normal rhythm Abdominal Exam Abdominal exam: Present soft; Absent tenderness Extremities Exam Extremities exam: Present normal inspection Neurological Exam Neurological exam: Present alert, oriented X3, normal gait (Slow gait veering to the left) and other (Decreased sensation and global distribution from the elbows down and knees down. 5 out of 5 strength in all joints of the bilateral upper and lower extremities.) Psychiatric Psychiatric exam: Present normal affect Skin Skin exam: Present warm and dry Medical Decision Making Medical Records Screening: Per USPSTF and CDC recommendations, given the prevalence of disease in our region, it is our hospital?s policy to screen for HIV and viral Hepatitis for all patients aged 18 and over and those with ongoing risk factors. Michael Inquiry Pt receiving controlled substance: No Vital Signs: 09/20/24 15:44 09/20/24 16:02 09/20/24 16:30 Temperature 98.6 F Temperature Source Oral Pulse Rate 106 H 78 Pulse Rate [Left Radial] 112 H Respiratory Rate 20 Blood Pressure 126/86 123/67 Blood Pressure [Right Arm] 126/86 Blood Pressure Mean 85 Blood Pressure Mean [Right Arm] 99 02 Sat by Pulse Oximetry 100 100 99 Oxygen Delivery Method Room Air Room Air Room Air 09/20/24 17:00 09/20/24 17:09 09/20/24 17:30 Temperature Temperature Source Pulse Rate 85 84 84 Pulse Rate [Left Radial] Respiratory Rate 23 17 16 Blood Pressure 122/69 110/67 108/67 L Blood Pressure [Right Arm] Blood Pressure Mean Blood Pressure Mean [Right Arm] 02 Sat by Pulse Oximetry 100 100 100 Oxygen Delivery Method Room Air 09/20/24 18:00 09/20/24 18:30 09/20/24 19:00 Temperature Temperature Source Pulse Rate 78 72 70 Pulse Rate [Left Radial] Respiratory Rate 19 20 17 Blood Pressure 107/71 L 112/78 123/76 Blood Pressure [Right Arm] Blood Pressure Mean Blood Pressure Mean [Right Arm] 02 Sat by Pulse Oximetry 100 100 100 Oxygen Delivery Method 09/20/24 19:30 Temperature Temperature Source Pulse Rate 67 Pulse Rate [Left Radial] Respiratory Rate 12 Blood Pressure 117/76 Blood Pressure [Right Arm] Blood Pressure Mean Blood Pressure Mean [Right Arm] 02 Sat by Pulse Oximetry 99 Oxygen Delivery Method Lab Data Lab Results 09/20/24 16:06: WBC 9.6, RBC 5.01, Hgb 14.8, Hct 44.3, MCV 88.4, MCH 29.5, MCHC 33.4, RDW 12.4, Plt Count 262, MPV 10.3, Neut % (Auto) 44.3, Lymph % (Auto) 47.4, [place] % (Auto) 7.1, Eos % (Auto) 0.2, Baso % (Auto) 0.5, Neut # (Auto) 4.3, Lymph # (Auto) 4.6 H, [place] # (Auto) 0.7, Eos # (Auto) 0.0, Baso # (Auto) 0.1, ESR 4, Sodium 142, Potassium 3.2 L, Chloride 103, Carbon Dioxide 29, Anion Gap 13.2, BUN 16, Creatinine 0.90, Estimated Creat Clear 96, Estimated GFR 76, Est GFR ( Amer) 92, Glucose 79, Calcium 9.2, Magnesium 1.8, Total Bilirubin 0.2, AST 47 H, ALT 45, Alkaline Phosphatase 78, Total Protein 7.1, Albumin 4.3, Globulin 2.8, Albumin/Globulin Ratio 1.5, TSH 5.13 H, Free T4 0.80, Serum HCG, Qual Negative 09/20/24 16:06 09/20/24 16:06 Orders (Tests/Meds): ED MEDICATIONS Discontinued Medications Generic Name Dose Route Start Last Admin Trade Name Freq PRN Reason Stop Dose Admin Acetaminophen 1,000 mg 09/20/24 16:21 09/20/24 16:28 Acetaminophen 1,000mg/100ml Vial IV 09/20/24 16:22 1,000 mg ONCE ONE Administration Iopamidol 87 ml 09/20/24 16:44 09/20/24 16:45 Iopamidol-370 (76%);100ml Bottle IV 09/20/24 16:45 87 ml ONCE ONE Administration Promethazine HCl 12.5 mg 09/20/24 16:21 09/20/24 16:28 Promethazine Hcl 25mg/Ml 1ml Vial IV 09/20/24 16:22 12.5 mg ONCE ONE Administration Sodium Chloride 25 ml 09/20/24 16:21 09/20/24 16:29 Sodium Chloride 0.9% 25ml Bag IV 09/20/24 16:22 25 ml ONCE ONE Administration Sodium Chloride 10 ml 09/20/24 16:44 09/20/24 16:44 Sodium Chloride 0.9% 10ml Syr (Rad Only) IV 09/20/24 16:45 10 ml ONCE ONE Administration Sodium Chloride 50 ml 09/20/24 16:44 09/20/24 16:44 0.9 % Sodium Chloride 50 Ml Vial IV 09/20/24 16:45 50 ml ONCE ONE Administration ORDERS Category Date Time Status CT Venogram head Stat Cat Scan 09/20/24 16:[address] angio head Stat Cat Scan 09/20/24 16:[address] angio neck Stat Cat Scan 09/20/24 16:[address] head/brain wo con Stat Cat Scan 09/20/24 16:00 Completed CBC w/Auto Diff [Complete Blood Count Auto Diff] Stat Lab 09/20/24 16:06 Completed CMP [Comprehensive Metabolic Panel] Stat Lab 09/20/24 16:06 Results CRP [C-Reactive Protein] Stat Lab 09/20/24 16:06 Results ESR [Erythrocyte Sedimentation Rate] Stat Lab 09/20/24 16:06 Completed Free T4 (Free Thyroxine) Stat Lab 09/20/24 16:06 Completed HCG Qualitative, Serum Stat Lab 09/20/24 16:06 Completed MG [Magnesium] Stat Lab 09/20/24 16:06 Completed TSH [Thyroid Stimulating Hormone] Stat Lab 09/20/24 16:06 Completed Medical Decision Narrative: In summary patient is a 23-year-old female with past medical history described above who presents emergency department for evaluation of multiple complaints. Patient is hemodynamically stable nontoxic-appearing upon arrival, afebrile. Given diplopia and headache extensive evaluation is warranted. Patient has not febrile and does not have any meningismus on my exam therefore empiric antibiotics will be deferred. Differential is broad includes space-occupying mass, venous sinus thrombosis, viral syndrome, viral meningitis, encephalitis, among others. Workup will be conducted with hematologic labs, noncontrasted CT scan of the head CTA of the head and neck CT venogram head. Initial inventions include IV Tylenol, promethazine. Initial work reviewed by me, hematologic labs have no significant leukocytosis, CMP nonactionable, TSH mildly elevated however T4 is within normal limits. ESR not elevated. hCG negative. Intracranial workup no large vessel occlusion, no aneurysm, no pseudoaneurysm. CTA of the neck has bilateral symmetrical moderate severe short segment tortuosity ICA mid cervical stenosis. I had an interactive discussion with radiologist regarding CTV patient has a thickened hyperenhancing pituitary infundibulum which has a broad differential. However given that patient has diplopia this is concerning. Given this case will be discussed with [facility] regarding management. I discussed case with Dr. Greer at [facility], unfortunately they are on high-level divert and will need override and will call me back. After significant amount of time I have decided to call [facility] at this time given that it is unlikely that will except for transfer. I discussed the case with [facility]. [place] and subsequently stroke navigator Lc who graciously excepted patient for transfer for continued evaluation at this time given the broad differential which includes CVA. Full dose aspirin will be administered. Given that patient has been in the emergency department multiple hours without any neurologic decline I think she is appropriate to go via POV. Patient was discharged for transport in stable condition. Critical Care Critical Care Time Critical Care Time: No
--- NOTE | 2024-09-20 16:17 | PC.NURSE ---
visual acuity done at 1617. Right eye 20/25. Left eye 20/25. Both eyes 20/20. Patient is wearing contacts.
[2024-09-20 16:21] LABS: Albumin Level 4.3 g/dl (3.5-5.0); Chloride 103 mmol/L (98-107); Potassium 3.2 mmoL/L (3.5-5.1); Sodium 142 mmol/L (136-145)
[2024-09-20 16:24] LABS: Alanine Aminotransferase 45 U/L (12-78); Albumin/Globulin Ratio 1.5 (1.1-1.8); Alkaline Phosphatase 78 U/L (38-126); Anion Gap 13.2 mEq/L (5-15); Aspartate Amino Transferase 47 U/L (14-36); Bilirubin,Total 0.2 mg/dl (0.2-1.3); Blood Urea Nitrogen 16 mg/dl (7-17); Carbon Dioxide 29 mmol/L (22.0-30.0); Creatinine Clearance Estimated 96 mL/min (50-200); Estimated Glomerular Filt Rate 76 ml/min (>60); GFR (African American) 92 ML/MIN (>60); Globulin 2.8 g/dL (1.3-3.2); Total Protein,Serum 7.1 g/dl (6.3-8.2)
[2024-09-20 16:25] LABS: Calcium 9.2 mg/dl (8.4-10.2); Glucose 79 mg/dl (74-100); Magnesium 1.8 mg/dl (1.6-2.3)
[2024-09-20] MEDS: PROMETHAZINE HCL 25MG/ML 1ML VIAL 12.5 MG IV (16:28)
[2024-09-20] MEDS: ACETAMINOPHEN 1,000MG/100ML VIAL 1000 MG IV (16:28)
[2024-09-20 16:29] LABS: HCG Qualitative, Serum Negative (Negative)
[2024-09-20] MEDS: SODIUM CHLORIDE 0.9% 25ML BAG 25 ML IV (16:29)
[2024-09-20 16:35] LABS: Basophils # 0.1 K/mm3 (0-0.2); Basophils % 0.5 % (0.1-2.0); Eosinophils % 0.2 % (0.1-12.0); Hematocrit 44.3 % (37.0-47.0); Hemoglobin 14.8 g/dL (12.2-16.2); Lymphocytes # 4.6 K/mm3 (0.7-4.5); Lymphocytes % 47.4 % (10-50); Mean Corpuscular HGB Conc 33.4 g/dL (31.8-35.4); Mean Corpuscular Hemoglobin 29.5 pg (27.0-31.2); Mean Corpuscular Volume 88.4 fl (81-99); Mean Platelet Volume 10.3 fl (7.4-10.4); Monocytes # 0.7 K/mm3 (0.1-1.0); Monocytes % 7.1 % (1.7-9.3); Neutrophils # 4.3 K/mm3 (1.8-7.8); Neutrophils % 44.3 % (37.0-80.0); Platelet Count 262 K/mm3 (142-424); Red Blood Count 5.01 M/mm3 (4.20-5.40); Red Cell Distribution Width 12.4 % (11.5-17.5); White Blood Count 9.6 K/mm3 (4.8-10.8)
[2024-09-20] MEDS: SODIUM CHLORIDE 0.9% 10ML SYR (RAD ONLY) 10 ML IV (16:44)
[2024-09-20] MEDS: 0.9 % SODIUM CHLORIDE 50 ML VIAL IV (16:44)
[2024-09-20] MEDS: IOPAMIDOL-370 (76%);100ML BOTTLE 87 ML IV (16:45)
[2024-09-20 17:04] LABS: Erythrocyte Sedimentation Rate 4 mm/hr (0-20)
[2024-09-20 17:09] LABS: Thyroid Stimulating Hormone 5.13 uIU/mL (0.465-4.68)
--- NOTE | 2024-09-20 17:59 | PC.NURSE ---
rn rounding pt is resting comfortly awaiting ct results, has no current complaints
--- NOTE | 2024-09-20 18:36 | PC.NURSE ---
called at 1835, provider will call back to talk to dr de oliveira
--- NOTE | 2024-09-20 20:17 | PC.NURSE ---
Contacted [facility] regarding transfer for this patient. They will page neuro and call us back they also advised they have an extensive wait list.
[2024-09-20] MEDS: ASPIRIN 81MG CHEWABLE TABLET 324 MG PO (21:08)
[2024-09-22 18:09] LABS: C-Reactive Protein < 1.0 mg/L (0-4)
== END 2024-09-20 21:48 | disposition short-term general hospital (02) ==
PROVIDERS: Emergency Provider Emergency Medicine
DX: H53.2 Diplopia (principal); R20.2 Paresthesia of skin; E23.7 Disorder of pituitary gland, unspecified; R42 Dizziness and giddiness; R51.9 Headache, unspecified; H53.143 Visual discomfort, bilateral; R53.1 Weakness; R11.0 Nausea; M54.2 Cervicalgia
CPT/HCPCS: 70450; 70496; 70498; 80053; 83735; 84439; 84443; 84703; 85025; 85651; 86140; 96374; 96375; 99285; J0131; J2550; Q9967

== ENCOUNTER 2024-11-14 10:38 | Outpatient (CLI) | payer BC, SELFPAY ==
[2024-11-14 11:01] LABS: Prothrombin Time 11.2 seconds (10.1-12.5)
== END 2024-11-14 23:59 | disposition home or self-care (01) ==
LOC: LAB 10:40
PROVIDERS: Visit Provider Nurse Practitioner
DX: R06.02 Shortness of breath (principal); G44.009 Cluster headache syndrome, unspecified, not intractable
CPT/HCPCS: 36415; 85610